=== PATIENT | female | born 1975 | race Caucasian/White ===

== ENCOUNTER 2020-05-18 13:18 | Emergency (ER) | payer OTHER, MEDICAID, SELFPAY ==
[2020-05-18 13:28] VITALS: BP 130/85; PULSE 95; RESP 20; TEMP 37; O2SAT 100
--- NOTE | 2020-05-18 13:32 | ED.SKABFB ---
HPI - Skin/Abscess/Foreign Bdy General Chief complaint: Skin/Abscess/Foreign Body Stated complaint: rash Time Seen by Provider: 05/18/20 13:32 Source: patient History of Present Illness HPI narrative: PATIENT PRESENTS WITH AN ITCHY RASH THAT HAS BEEN PRESENT FOR THE PAST 2 WEEKS. PATIENT HAS ITCHING TO PALMS OF HAND, NO RASH TO HANDS, NO DRY AREA. PATIENT HAS ITCHY AREAS TO ARMS. NO REDNESS. PATIENT HAS BEEN TAKING BENADRYL AND APPLYING HYDROCORTISONE CREAM TO AREA WITH NO IMPROVEMENT MD complaint: rash Related Data Home Medications Medication Instructions Recorded Confirmed phentermine 15 mg DAILY 05/18/20 05/18/20 Allergies Allergy/AdvReac Type Severity Reaction Status Date / Time No Known Allergies Allergy Verified 05/18/20 13:21 Review of Systems Review of Systems: Narrative: CONSTITUTIONAL: Denies fever, chills, or sweats. EYES: Denies visual changes, redness, or discharge. ENT: Denies rhinorrhea, congestion, sore throat, or otalgia. CARDIOVASCULAR: Denies chest pain, palpitations, or edema. RESPIRATORY: Denies cough or dyspnea. GASTROINTESTINAL: Denies abdominal pain, nausea, vomiting, or diarrhea. GENITOURINARY: Denies dysuria or hematuria. SKIN: Rash to arms itching to palms of hands MUSCULOSKELETAL: Denies back pain, joint pain, or myalgia. NEUROLOGIC: Denies headache, numbness, or weakness. PSYCHIATRIC: Denies anxiety or depression. PMFSH Social History Social History Gender identity (if verbalized by the patient): Female Comments At time of signature, agree with nursing past medical, surgical, social and family history. There is no relevant family history pertinent to the presenting complaint Exam Narrative: Exam Narrative: GENERAL: Well-appearing, well-nourished, and in no acute distress. HEAD: Normocephalic, atraumatic. EYES: PERRLA and EOMI. ENT: Nares clear, no rhinorrhea or epistaxis. Mucous membranes moist. NECK: Supple. CHEST: Clear to auscultation. No respiratory distress. HEART: Regular rate and rhythm. No murmur heard. Normal peripheral pulses. ABDOMEN: Soft, nontender, nondistended, normal active bowel sounds. EXTREMITIES: Normal range of motion. No edema. SKIN: NON SPECIFIC GENERALIZED RASH. NO FLUID FILLED LESIONS, NO VESICLES, NO HIVES OR URTICARIA, NO BURROWS OR RASH IN WEB SPACES TO INDICATE SCABIES, NO CONCERN FOR CELLULITIS OR ABSCESS FORMATION. NO PURPURA OR PETECHIA. DOES NOT INVOLVE THE SOLES OF FEET OR PALMS OF HANDS OR THE MUCOSAL MEMBRANES. NO SLOUGHING OR SWELLING OF TONGUE OR LIPS. Papular areas to arms, some areas with central clearing to both legs no concern for cellulitis patient complains of itching to palms but no visible rash no scaling to palms NEURO: No focal deficits. Alert and oriented x3. [place] Coma Scale Eye Opening: Spontaneous 4 [place] Coma Scale Motor: Obeys Commands 6 [place] Coma Scale Verbal: Oriented 5 [place] Coma Scale Total 15 Course Vital Signs Vital signs: Vital Signs Temperature 37.0 C 05/18/20 13:28 Pulse Rate 95 05/18/20 13:28 Respiratory Rate 05/18/20 13:28 Blood Pressure 130/85 05/18/20 13:28 Pulse Oximetry 100 05/18/20 13:28 Temperature 37.0 C 05/18/20 13:28 Pulse Rate 95 05/18/20 13:28 Respiratory Rate 05/18/20 13:28 Blood Pressure 130/85 05/18/20 13:28 Pulse Oximetry 100 05/18/20 13:28 At time of signature, agree with nursing past medical, surgical, social and family history. There is no relevant family history pertinent to the presenting complaint MDM - Skin/Abscess/Foreign Bdy Differential Diagnosis Differential diagnosis: Likely abscess of skin or subcutaneous tissue, viral exanthem, dermatophytosis, urticaria, herpes zoster, allergic reaction to drug, cellulitis, eczema, insect bites, impetigo and contact dermatitis Critical Care Time Critical Care Time Critical Care Time: No Discharge Plan Discharge Clinical Impression: Contact dermatitis Patient Disposition:
== END 2020-05-18 13:36 | disposition home or self-care (01) ==
PROVIDERS: Emergency Provider Nurse Practitioner Family; PCP Family Medicine
DX: L25.9 Unspecified contact dermatitis, unspecified cause (principal)
CPT/HCPCS: 99213; G0463

== ENCOUNTER 2020-08-25 10:09 | Emergency (ER) | payer OTHER, MEDICAID, SELFPAY ==
--- NOTE | ~2020-08-25 | CT_ITS ---
EXAMINATION: CT abdomen pelvis wo con DATE: 08/25/2020 12:14 INDICATION: Left flank pain. TECHNIQUE: Computed tomography (CT) of the abdomen and pelvis was performed without intravenous contr ast. Automated exposure control and iterative reconstruction technique were employed. The dose-length product was 454.91 mGy-cm. COMPARISON: None. FINDINGS: The visualized portions of the lung bases demonstrate patchy groundglass opacities in the l ower lobes. No pleural effusion. The heart size is normal. No pericardial effusion. The liver, gallbl adder, spleen, pancreas, adrenal glands, and kidneys are normal. There are no dilated loops of bowel. The appendix is not visualized. There are no pathologically enlarged lymph nodes. There is no free i ntraperitoneal fluid. There is mild thoracolumbar spondylosis. IMPRESSION: 1. No urolithiasis. 2. Patchy groundglass opacities in the lower lobes, consistent with atypical pneumonia such as COVID- 19 pneumonia. Reviewed, dictated and finalized at location A. ONER HAND IMPRESSION: 1. No urolithiasis. 2. Patchy groundglass opacities in the lower lobes, consistent with atypical pn eumonia such as COVID-19 pneumonia.
[2020-08-25 10:37] VITALS: BP 109/89; PULSE 95; RESP 18; TEMP 36.8; O2SAT 97
[2020-08-25] MEDS: SODIUM CHLORIDE 0.9% IV 1,000 ML 999 ML IV CONT (11:04)
[2020-08-25 11:14] LABS: Basophils Percent Auto 0.3 % (0.2-1.2); Hematocrit 42.3 % (37.0-47.0); Immature Granulocyte Absolute 0.02 K/mm3 (0.00-0.031); Immature Granulocyte Percent A 0.3 % (0-0.5); Lymphocytes Percent Auto 20.5 % (18.3-44.2); Mean Corpuscular HGB Conc 33.1 g/dl (32-36); Mean Corpuscular Hemoglobin 29.1 pg (26-34); Mean Corpuscular Volume 87.9 fl (80-100); Monocytes Absolute Auto 0.4 K/mm3 (0.1-0.6); Neutrophils Absolute Auto 4.3 K/mm3 (1.3-6.7); Neutrophils Percent Auto 72.9 % (45.5-73.1); Platelet Count Result 233 k/mm3 (150-375); Red Blood Count 4.81 M/mm3 (4.2-5.4); Red Cell Distribution Width 13.5 % (11.5-14.5); White Blood Count 5.9 K/mm3 (4.5-10.0)
[2020-08-25 11:24] LABS: Add Urine Microscopic? YES; Appearance Urine Cloudy (Clear); Bacteria Urine Trace /hpf; Bilirubin Urine Negative (Negative); Blood Urine Negative (Negative); Color Urine Yellow (Yellow); Glucose Urine UA Negative (Negative); Ketones Urine Negative (Negative); Leukocyte Esterase Ur Negative LEU/UL (Negative); Mucus Urine Moderate /lpf; Nitrate Urine Negative (Negative); Protein Urine 2+ mg/dL (Negative); Specific Grav Ur 1.028 (1.001-1.035); Squamous Epithelial Cell Urine Many /hpf (Few); Urobilinogen Urine Negative mg/dL (<2.0)
[2020-08-25 11:28] LABS: Anion Gap 11 mmol/L (8-16); Blood Urea Nitrogen 9 mg/dL (7-17); Calcium 8.5 mg/dL (8.4-10.2); Carbon Dioxide 22 mmol/L (22-30); Chloride 102 mmol/L (98-107); Estimated CRCL calculation 101 ml/min; Estimated Glomerular Filt Rate > 60; Glucose 126 mg/dL (65-105); Potassium 3.9 mmol/L (3.4-5.0); Sodium 135 mmol/L (137-145)
[2020-08-25 12:35] VITALS: BP 113/76; PULSE 76; RESP 18; O2SAT 99
--- NOTE | 2020-08-25 12:52 | ED.BACK ---
HPI - Back Pain/Injury General Chief Complaint: Back Pain/Injury Stated Complaint: L FLANK PAIN Time Seen by Provider: 08/25/20 10:16 History of Present Illness HPI Narrative: Patient is a 45-year-old female who presents ER with left-sided flank pain. Reports its been her back over the last week and she thinks has moved around to the side. Seems similar to when she has had a kidney stone the past. She has not been having nausea or vomiting or shortness of breath. Pain is worse with sitting down. Has not found any pain medication helps. Denies fevers or chills or sweats or productive cough. No other concerns at this time. She denies any dysuria or hematuria or urinary frequency. Related Data Home Medications Medication Instructions Recorded Confirmed phentermine 15 mg DAILY 05/18/20 05/18/20 Allergies Allergy/AdvReac Type Severity Reaction Status Date / Time No Known Allergies Allergy Verified 08/25/20 10:52 Review of Systems Review of Systems: All systems reviewed & are unremarkable except as noted in HPI and below Constitutional: Constitutional: Denies chills, Denies fever(s) and Denies weakness ENT: Denies nasal congestion and Denies sore throat Cardiovascular: Cardiovascular: Denies chest pain and Denies radiating jaw, neck or arm pain Respiratory: Respiratory: Denies cough, Denies dyspnea and Denies wheezing Gastrointestinal: Gastrointestinal: Denies abdominal pain, Denies nausea and Denies vomiting Genitourinary: Genitourinary: Denies hematuria, Denies dysuria and Reports flank pain PMFSH Past Medical History Medical History (Updated 08/25/20 @ 12:56 by Ezio Muñoz MD) Ectopic Surgical History Surgical History (Updated 08/25/20 @ 12:53 by Ezio Muñoz MD) History of salpingectomy Social History Social History Gender identity (if verbalized by the patient): Female Exam Narrative: Exam Narrative: GENERAL: Well-appearing, well-nourished, and in no acute distress. HEAD: Normocephalic, atraumatic. CHEST: Clear to auscultation. No respiratory distress. HEART: Regular rate and rhythm. Normal peripheral pulses. ABDOMEN: Soft, nontender, nondistended, no CVA tenderness. Back: No midline tenderness or paraspinal muscular tenderness. EXTREMITIES: Normal range of motion. No edema. SKIN: Warm, dry, no rash. NEURO: Alert and oriented x3. PSYCH: Normal mood and affect. Course Course Emergency Course: Patient informed of results. Will swab for Covid. Because is not confirmed Covid we will start patient on some azithromycin for pneumonia. Patient has been instructed to self isolate at home. Vital Signs Vital signs: Vital Signs Temperature 98.2 F 08/25/20 10:37 Pulse Rate 95 08/25/20 10:37 Respiratory Rate 18 08/25/20 10:37 Blood Pressure 109/89 08/25/20 10:37 Pulse Oximetry 97 08/25/20 10:37 Temperature 98.2 F 08/25/20 10:37 Pulse Rate 76 08/25/20 12:35 Respiratory Rate 18 08/25/20 12:35 Blood Pressure 113/76 08/25/20 12:35 Pulse Oximetry 99 08/25/20 12:35 MDM - Back Pain/Injury Lab Data Result diagrams: 08/25/20 11:06 08/25/20 11:06 Labs: Lab Results 08/25/20 08/25/20 08/25/20 Range/Units 11:06 11:06 11:06 WBC 5.9 (4.5-10.0) K/mm3 RBC 4.81 (4.2-5.4) M/mm3 Hgb 14.0 (12.0-15.0) g/dL Hct 42.3 (37.0-47.0) % MCV 87.9 (80-100) fl MCH 29.1 (26-34) pg MCHC 33.1 (32-36) g/dl RDW 13.5 (11.5-14.5) % Plt Count 233 (150-375) k/mm3 MPV 10.0 (7.4-10.4) fl Immature Gran % (Auto) 0.3 (0-0.5) % Neut % (Auto) 72.9 (45.5-73.1) % Lymph % (Auto) 20.5 (18.3-44.2) % [place] % (Auto) 6.0 (2.6-8.5) % Eos % (Auto) 0.0 (0-4.4) % Baso % (Auto) 0.3 (0.2-1.2) % Lymph # (Auto) 1.20 (0.9-3.2) K/mm3 [place] # (Auto) 0.4 (0.1-0.6) K/mm3 Eos # (Auto) 0.0 (0-0.3) K/mm3 Baso # (Auto) 0.0 (0.0-0.1) K/mm3 Abs Immat Gran
[2020-08-25 13:05] VITALS: BP 121/81; PULSE 78; RESP 18; O2SAT 99
[2020-08-25 22:00] LABS: SARS-CoV-2 RNA PCR Negative
== END 2020-08-25 13:06 | disposition home or self-care (01) ==
PROVIDERS: Emergency Provider Emergency Medicine; PCP Family Medicine
DX: J18.9 Pneumonia, unspecified organism (principal); Z20.828 Contact with and (suspected) exposure to other viral communicable diseases; Z87.442 Personal history of urinary calculi
CPT/HCPCS: 36415; 74176; 80048; 81001; 81025; 85025; 87086; 87088; 87635; 96360; 99284; C9803; J7030; U0003

== ENCOUNTER 2021-11-24 12:35 | Emergency (ER) | payer OTHER, MEDICAID, SELFPAY ==
--- NOTE | 2021-11-24 12:42 | ED.URI ---
HPI - URI/Sore Throat General Chief Complaint: Upper Respiratory Infection Stated Complaint: Sore Throat,Chills Time Seen by Provider: 11/24/21 12:58 Source: patient and RN notes reviewed Mode of arrival: ambulatory Limitations: no limitations History of Present Illness HPI Narrative: 46-year-old female presents with concern for sore throat and chills. Reports symptoms started last night. She reports last night she had some shivering, sweats, chills. She denies rhinorrhea, nasal congestion, fever, cough, shortness of breath. Reports history of strep throat. MD elicited complaint: sore throat Related Data Home Medications Medication Instructions Recorded Confirmed phentermine 15 mg DAILY 05/18/20 11/24/21 Allergies Allergy/AdvReac Type Severity Reaction Status Date / Time No Known Allergies Allergy Verified 11/24/21 13:01 Review of Systems Review of Systems: CONSTITUTIONAL: Reports malaise, chills, sweats EYES: Denies visual changes, redness, or discharge. ENT: Denies rhinorrhea, congestion, sinus pain, otalgia. Reports sore throat. CARDIOVASCULAR: Denies chest pain, palpitations, or edema. RESPIRATORY: Denies cough. Denies dyspnea. GASTROINTESTINAL: Denies abdominal pain, nausea, vomiting, diarrhea SKIN: Denies rash or itching. MUSCULOSKELETAL: Denies myalgia. NEUROLOGIC: Denies headache. All systems reviewed & are unremarkable except as noted in HPI and below PMFSH Past Medical History Medical History (Updated 11/24/21 @ 13:06 by Albania Alford NP) Ectopic Surgical History Surgical History (Updated 08/25/20 @ 12:53 by Ezio Muñoz MD) History of salpingectomy Social History Social History Gender identity (if verbalized by the patient): Female Comments At time of signature, agree with nursing past medical, surgical, social and family history. There is no relevant family history pertinent to the presenting complaint Exam Narrative: GENERAL: Well-appearing, well-nourished, and in no acute distress. HEAD: Normocephalic EYES: PERRLA, conjunctivae clear ENT: Nares clear. Mucous membranes moist. TM pearly brown with sharp light reflex bilaterally; no tragal tenderness. Oropharynx erythematous without lesions. Tonsils enlarged, 3+, and without exudate, no drooling, no hoarseness, no trismus, uvula midline. NECK: Supple. No lymphadenopathy CHEST: Clear to auscultation, breath sounds equal. No wheezing, rhonchi, rales, or stridor. No respiratory distress, speaks in full sentences. HEART: Regular rate and rhythm. No murmur heard. SKIN: Warm, dry, no rash. NEURO: Alert and oriented x3. PSYCH: Normal mood and affect Course Course Emergency Course: Patient is aware of diagnosis, understands and agrees to treatment plan. Anticipatory guidance given. Patient agrees to follow-up as directed and is aware of reasons to seek care at the emergency department. Portions of this record may have been created with voice recognition software Level of Care: Express Care Visit Vital Signs Vital signs: Reviewed. MDM - URI/Sore Throat MDM Narrative Medical decision making narrative: Differential diagnosis considered: Delaney virus, strep pharyngitis, allergic rhinitis, upper respiratory tract infection, sinusitis, rhinosinusitis, nasopharyngitis. viral pharyngitis, otitis media, otitis externa, pneumonia, bronchitis, viral cough syndrome, viral syndrome, and influenza. Exam findings show no acute concerns or changes; patient is non-toxic appearing and is in no distress. Patient is appropriate for outpatient treatment and follow-up. Lab Data Attestation: I reviewed the patient's lab results. Critical Care Time Critical Care Time Critical Care Time: No Discharge Plan Discharge Clinical Impression: Acute streptococcal pharyngitis Patient Disposition: Home, Self-Care Condition: Stable Instructions: Antibiotic Form, Strep Throat (ED) Additional Instructions: -Take the medication as pr
[2021-11-24 12:48] VITALS: BP 131/83; PULSE 107; RESP 18; TEMP 36.6; O2SAT 100
== END 2021-11-24 13:11 | disposition home or self-care (01) ==
PROVIDERS: Emergency Provider Nurse Practitioner; PCP Family Medicine
DX: J02.0 Streptococcal pharyngitis (principal)
CPT/HCPCS: 87880; 99213; G0463

== ENCOUNTER 2021-11-25 16:01 | Outpatient (CLI) | payer OTHER, MEDICAID, SELFPAY ==
--- NOTE | ~2021-11-25 | MM_ITS ---
EXAMINATION: MM screening dawn BI w mariaelena HISTORY: Screening mammogram TECHNIQUE: Craniocaudal and mediolateral oblique 3-D tomosynthesis images were obtained and synthetic 2-D images were generated. CAD analysis was submitted and interpreted. COMPARISON: 07/17/2019 diagnostic right mammogram 07/03/2019, 06/2018 bilateral screening mammogram examinations BREAST PARENCHYMAL COMPOSITION: There are scattered areas of fibroglandular density. FINDINGS: There is no evidence of suspicious mass, calcification, or architectural distortion to sugg est malignancy in either breast. There has been no suspicious interval change. IMPRESSION: 1. No mammographic evidence of malignancy. 2. Recommend routine screening mammography in one year. BI-RADS Category 1: Negative Reviewed, dictated and finalized at location A.
== END 2021-11-25 16:02 | disposition home or self-care (01) ==
LOC: ANHIMG 16:02
PROVIDERS: PCP Family Medicine; Visit Provider Family Medicine
DX: Z12.31 Encounter for screening mammogram for malignant neoplasm of breast (principal)
CPT/HCPCS: 77063; 77067

== ENCOUNTER 2022-03-20 12:54 | Emergency (ER) | payer OTHER, MEDICAID, SELFPAY ==
[2022-03-20 12:59] VITALS: BP 147/93; PULSE 82; RESP 18; TEMP 37.1; O2SAT 100
--- NOTE | 2022-03-20 13:09 | ED.GENADULT ---
HPI - General Adult General Chief complaint: Upper Respiratory Infection Stated complaint: Congestion,Cough History of Present Illness HPI narrative: Patient is a 46-year-old female who presents to the [facility] via POV for evaluation of upper respiratory symptoms that began 3 days ago. Additionally, she reports productive cough, nasal congestion, and sore throat. She reports her sputum production is moderate in the mornings and mild throughout the day. Sputum production is yellow in color. Ibuprofen alleviates throat pain. Nothing worsens symptoms. Patient states she is tested for COVID daily at work. She has had 3 negative COVID tests since symptom onset. She has also been exposed to COVID and URIs from coworkers. Patient is not vaccinated against COVID. Related Data Allergies Allergy/AdvReac Type Severity Reaction Status Date / Time No Known Allergies Allergy Verified 03/20/22 12:58 Review of Systems Review of Systems: Denies history of COPD, bronchitis, asthma, and pneumonia. Denies current/past tobacco use. Pertinent negatives: fever, sweats, chills, change in appetite, fatigue, skin color changes, headache, nasal discharge, dizziness, lymphadenopathy, drooling, voice changes, sinus problems, ear pain/drainage, chest pain, heart murmurs, heart palpitations, shortness of breath, wheezing, cyanosis, hemoptysis, orthopnea, pleuritic pain, nausea, vomiting, diarrhea, and myalgias. PMFSH Past Medical History Medical History Ectopic Surgical History Surgical History History of salpingectomy Social History Social History Gender identity (if verbalized by the patient): Female Exam Narrative: GENERAL: Well-appearing, well-nourished, and in no acute distress. HEAD: Normocephalic, atraumatic. No sinus tenderness or facial swelling appreciated. EYES: PERRLA and EOMI. No evidence of erythema, swelling, or drainage. ENT: Bilateral external ears and ear canals normal. Bilateral TMs are normal.No TM perforation. Nares clear, no rhinorrhea or epistaxis. Bilateral turbinates are moderately erythematous and edematous. Mucous membranes moist and pink. Uvula is midline without erythema and swelling. Bilateral tonsils are mildy erythematous otherwise normal. Breath odor and voice normal. NECK: Supple. No Lymphadenopathy or nuchal rigidity appreciated. CHEST: Bilateral lung fofana are clear to auscultation. No respiratory distress. No evidence of cough or pleuritic cp upon examination. HEART: Regular rate and rhythm. No murmur, gallop, or rub heard. EXTREMITIES: Normal range of motion. No edema. SKIN: Warm, dry, no rash. NEURO: No focal deficits. Alert and oriented x3. . Course Course Level of Care: Express Care Visit Vital Signs Vital signs: Due to an elevated blood pressure, I had a detailed discussion with the patient and/or guardian regarding the need for follow-up with their primary care provider within the next 3-4 days. Patient verbalized understanding and agreed. Medical Decision Making Differential Diagnosis Differential Diagnosis: Allergic rhinitis, ABRS, acute viral sinusitis, strep pharyngitis, nasopharyngitis, bronchitis, pneumonia, AOM, otitis externa, viral URI, influenza, covid-19 Lab Data Lab results narrative: rapid strep negative Critical Care Time Critical Care Time Critical Care Time: No Discharge Plan Discharge Clinical Impression: Upper respiratory infection Qualifiers: URI type: unspecified URI Qualified Code(s): J06.9 - Acute upper respiratory infection, unspecified Patient Disposition: Home, Self-Care Condition: Stable Instructions: Antibiotic Form, Upper Respiratory Infection (ED) Additional Instructions: --See discharge instructions for detailed information. --You tested negat
== END 2022-03-20 13:24 | disposition home or self-care (01) ==
PROVIDERS: Emergency Provider Nurse Practitioner Family; PCP Family Medicine
DX: J06.9 Acute upper respiratory infection, unspecified (principal); Z86.16 Personal history of COVID-19
CPT/HCPCS: 87081; 87880; 99213; G0463

== ENCOUNTER 2022-08-23 14:40 | Emergency (ER) | payer OTHER, MEDICAID, SELFPAY ==
--- NOTE | 2022-08-23 14:49 | ED_ITS ---
HPI - URI/Sore Throat General Chief Complaint: Upper Respiratory Infection Stated Complaint: cough,congestion Time Seen by Provider: 08/23/22 14:59 Source: patient and RN notes reviewed Mode of arrival: ambulatory Limitations: no limitations History of Present Illness HPI Narrative: 47-year-old female presented for complaint of cough for 2 weeks. She endorses sinus congestion started today. She denies body aches, shortness of breath, wheezing, sore throat, fever or chills. She has not taking anything for symptoms. 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 MD elicited complaint: cough Related Data Allergies Allergy/AdvReac Type Severity Reaction Status Date / Time No Known Allergies Allergy Verified 08/23/22 14:48 Review of Systems Review of Systems: ROS per HPI [facility] Past Medical History Medical History Ectopic Surgical History Surgical History History of salpingectomy Social History Social History Gender identity (if verbalized by the patient): Female Exam Narrative: GENERAL: well-appearing EYES: PERRLA, conjunctivae clear ENT: Mucous membranes moist. TMs pearly brown with dull light reflex bilaterally; no tragal tenderness. CHEST: Clear to auscultation, breath sounds equal. HEART: Regular rate and rhythm. No murmur heard. SKIN: Warm, dry, no rash. NEURO: Alert and oriented x3. PSYCH: Normal mood and affect Course Course Emergency Course: Patient is aware of diagnosis, understands and agrees to treatment plan. Anticipatory guidance given. Patient agrees to follow-up as directed and is aware of reasons to seek care at the emergency department. Portions of this record may have been created with voice recognition software Level of Care: Express Care Visit Vital Signs Vital signs: reviewed MDM - URI/Sore Throat MDM Narrative Medical decision making narrative: Advised supportive measures and signs/symptoms to go to the ER. Pt is appropriate for outpt treatment and f/u. Differential Diagnosis Differential diagnosis: Likely upper respiratory infection, sinusitis and viral infection Discharge Plan Discharge Clinical Impression: Cough Patient Disposition: Home, Self-Care Condition: Stable Instructions: Acute Cough (ED) Additional Instructions: Recommend Flonase spray and Zyrtec (or Claritin/Eliza) over the counter Cough syrup may cause drowsiness; avoid driving or take it at night time. Tylenol every 8 hours as needed for pain Symptomatic treatment includes: rest, fluids, and increase humidity of the air at home. Follow up with your primary care provider in 1 week. Go to the ER for worsening symptoms or concerns. Prescriptions: New benzonatate 200 mg capsule 200 mg PO TID PRN (Reason: cough) Qty: 20 0RF prednisone 20 mg tablet 40 mg PO DAILY 4 Days Qty: 8 0RF Follow-up/Referrals: Robin,MD Efe [Primary Care Provider] - Time of Disposition: 15:12
[2022-08-23 14:53] VITALS: BP 138/85; PULSE 92; RESP 18; TEMP 36.8; O2SAT 100
== END 2022-08-23 16:49 | disposition home or self-care (01) ==
PROVIDERS: Emergency Provider Nurse Practitioner Family; PCP Family Medicine
DX: R05.9 Cough, unspecified (principal)
CPT/HCPCS: 99213; G0463

== ENCOUNTER 2022-11-24 14:56 | Emergency (ER) | payer BC, MEDICAID, SELFPAY ==
--- NOTE | ~2022-11-24 | XR_ITS ---
EXAMINATION: XR chest 2V Exam Date/Time: 11/24/2022 15:15 CDT HISTORY: cough x 2 weeks Comparison: None available. RESULT: Lines, tubes, and devices: None. Lungs and pleura: Clear. Cardiomediastinal silhouette: Normal. Other: No acute osseous or upper abdominal finding. IMPRESSION: No acute cardiopulmonary process. Reviewed, dictated and finalized at location K.
[2022-11-24 15:07] VITALS: BP 138/91; PULSE 89; RESP 16; TEMP 36.8; O2SAT 100
--- NOTE | 2022-11-24 15:14 | ED.URI ---
HPI - URI/Sore Throat General Chief Complaint: Upper Respiratory Infection Stated Complaint: cough,nasal drainage Time Seen by Provider: 11/24/22 15:14 Source: patient Mode of arrival: ambulatory Limitations: no limitations History of Present Illness HPI Narrative: 47-year-old female presents with complaint of cough for 2 weeks. Reports today at work she became winded. 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 Patient states that she does not really feel that bad but environmental field office manager made her come . Afebrile. No history of asthma, bronchitis. Smoked and high school but not since then. All systems reviewed and negative except as noted above. Related Data Allergies Allergy/AdvReac Type Severity Reaction Status Date / Time No Known Allergies Allergy Verified 11/24/22 15:10 Review of Systems Review of Systems: CONSTITUTIONAL: Denies fever, chills, or sweats. EYES: Denies visual changes, redness, or discharge. ENT: Denies rhinorrhea, congestion, sore throat, or otalgia. CARDIOVASCULAR: Denies chest pain, palpitations, or edema. RESPIRATORY: Reports cough and dyspnea on exertion. GASTROINTESTINAL: Denies abdominal pain, nausea, vomiting, or diarrhea. GENITOURINARY: Denies dysuria or hematuria. SKIN: Denies rash or itching. MUSCULOSKELETAL: Denies back pain, joint pain, or myalgia. NEUROLOGIC: Denies headache, numbness, or weakness. PSYCHIATRIC: Denies anxiety or depression. All other systems reviewed are negative, except as documented in HPI. PMFSH Past Medical History Medical History Ectopic Surgical History Surgical History History of salpingectomy Social History Social History Gender identity (if verbalized by the patient): Female Comments At time of signature, agree with nursing past medical, surgical, social and family history. There is no relevant family history pertinent to the presenting complaint. Exam Narrative: GENERAL: This is a well-nourished, well-developed patient, in no apparent distress. HEAD: normocephalic, atraumatic. EYES: PERRL. Sclera clear/white. Vision is grossly intact. EARS: External ears normal, auditory canals clear and without drainage, TMs normal without perforation. Hearing grossly intact. NOSE: External nose normal with no obvious nasal discharge, nares without redness, no rhinorrhea. THROAT: Mucous membranes moist, posterior pharynx clear. NECK: Neck supple, non-tender without lymphadenopathy, masses or thyromegaly. CARDIOVASCULAR: Regular rate and rhythm without murmurs, gallops, or rubs. RESPIRATORY: decreased lung sounds to lower lung fofana. Expiratory wheezing noted to left lower lobe. No rales, or rhonchi. SKIN: warm, Dry, intact with no suspicious lesions or rash, good texture and turgor. NEURO: awake, alert, and oriented to person, place and time. There were no obvious focal neurologic abnormalities. EXTREMITIES: No joint tenderness, effusion, or edema noted. Course Course Level of Care: Express Care Visit Vital Signs Vital signs: Vital Signs Temperature 36.8 C 11/24/22 15:07 Pulse Rate 89 11/24/22 15:07 Respiratory Rate 16 11/24/22 15:07 Blood Pressure 138/91 H 11/24/22 15:07 Pulse Oximetry 100 11/24/22 15:07 Oxygen Delivery Room Air 11/24/22 15:07 Temperature 36.8 C 11/24/22 15:07 Pulse Rate 89 11/24/22 15:07 Respiratory Rate 16 11/24/22 15:07 Blood Pressure 138/91 H 11/24/22 15:07 Pulse Oximetry 100 11/24/22 15:07 Oxygen Delivery Room Air 11/24/22 15:07 reviewed MDM - URI/Sore Throat MDM Narrative Medical decision making narrative: Patient is aware of diagnosis, understands and agrees to treatment plan. Anticipatory guidance given. Patient agr
== END 2022-11-24 15:43 | disposition home or self-care (01) ==
PROVIDERS: Emergency Provider Nurse Practitioner Family; PCP Family Medicine
DX: J20.9 Acute bronchitis, unspecified (principal)
CPT/HCPCS: 71046; 99213; G0463

== ENCOUNTER 2024-09-08 12:34 | Emergency (ER) | payer BC, MEDICAID, SELFPAY ==
--- NOTE | 2024-09-08 13:03 | ED_ITS ---
HPI - Female Genitourinary General Chief complaint: Urogenital-Female Stated complaint: possible UTI Time Seen by Provider: 09/08/24 12:53 Source: patient Mode of arrival: ambulatory Limitations: no limitations History of Present Illness HPI Narrative: Cindy is a 49-year-old female patient presenting to the clinic today with complaints of possible urinary tract infection. She reports she is having some left-sided abdominal discomfort that started on of this week. States prior to that she had a week's worth urinary symptoms with pressure sensation with urination, dysuria, and fever. She denies any nausea, vomiting, or diarrhea. No vaginal discharge or odor. Denies any chance of . Last menstrual period was August 23. Patient has been taking azo for her symptoms. Related Data Home Medications ?Medication ?Instructions ?Recorded ?Confirmed ?Last Taken ?Type tirzepatide (weight loss) 10 mg subcut 09/08/24 Unknown History mg/0.5 mL subcutaneous pen injector (Zepbound) Allergies Allergy/AdvReac Type Severity Reaction Status Date / Time No Known Allergies Allergy Verified 09/08/24 13:14 Review of Systems Review of Systems: Pertinent positives per HPI. Patient denies any fever, chills, rash, headache, visual changes, dizziness, cough, runny nose, sore throat, shortness of breath, chest pain, palpitations, nausea, vomiting, diarrhea, constipation PMFSH Past Medical History Medical History Ectopic Surgical History Surgical History History of salpingectomy Social History Social History Gender identity (if verbalized by the patient): Female Comments At the time of my signature, I reviewed and agree with the nursing past medical, surgical, social, and family history. There is no relevant family history pertinent to the patient complaint. Exam Narrative: General: Well-developed, well nourished, in no apparent distress. Head: Normocephalic, atraumatic. Cardio: Regular rate and rhythm, s1 and s2 normal, no murmur appreciated. Resp: Clear to auscultation bilaterally, no rhonchi, rales, wheezing or rubs. Abdomen: Soft, pliable, bowel sounds present in all quadrants, tender to palpation in the left lower abdomen, no organomegly, no CVAT tenderness. Course Course Emergency Course: Portions of this record may have been created with voice recognition software. Level of Care: Express Care Visit Vital Signs Vital signs: Vital signs reviewed MDM - Female Genitourinary MDM Narrative Medical decision making narrative: At the time of visit patient is resting comfortably on the exam table. Patient appears to be nontoxic. Labs: Urinalysis did skewed due to azo. We will send urine for culture Plan: I suspect patient likely has a bladder infection. Will place on Bactrim and send urine for culture. Supportive measures were discussed with the patient and they voiced understanding discharge instructions and agrees to treatment plan. Return precautions reviewed Differential Diagnosis Differential diagnosis: Likely urinary tract infection, cystitis and other (Pyelonephritis) Discharge Plan Discharge Clinical Impression: Urinary tract infection Qualifiers: Urinary tract infection type: acute cystitis Hematuria presence: with hematuria Qualified Code(s): N30.01 - Acute cystitis with hematuria Patient Disposition: Home, Self-Care Condition: Stable Instructions: Antibiotic Form, Urinary Tract Infection in Women (ED) Additional Instructions: Increase fluids and stay well hydrated Wipe front to back. May use wet wipes. Avoid tub baths If sexually active- pee before and after intercourse. Wear cotton panties Avoid tight clothing up against the genitals Follow up with your PCP in 1 week if symptoms persist. Go to the emergency room if symptoms worsen-developed fever not controlled by Tylenol Motrin, difficulty urinating, nausea, vomiting, or worsening of abdominal pain Patient Language: Serbian Prescriptions: New sulfamethoxazole-trimethoprim [Bactrim DS] 800-160 mg tablet 1 tablet PO Q12H 7 Days Qty: 14 0RF No Action (DME) Aerochamber Plus Z Stat Spacer See Rx Instructions .Route Qty: 1 0RF Rx Instructions: As directed Zepbound 10 mg/0.5 mL pen injector SUBCUT Follow-up/Referrals: CANDIS,PRABHU REID [Primary Care Provider] - Time of Disposition: 13:21 Quality NIHSS Nursing Documentation ED NIHSS nursing documentation: reviewed/agree
[2024-09-08 13:04] VITALS: BP 134/88; PULSE 116; RESP 18; TEMP 37.2; O2SAT 100
[2024-09-08 13:11] LABS: EDUAAPPEAR Cloudy; EDUABILI 1+ (Negative); EDUABLOOD 1+ (Negative); EDUACOLOR1 Yellow; EDUAGLUCOSE Negative (Negative); EDUAKETONE Trace (Negative); EDUALEUKO 1+ (Negative); EDUANITRATE Positive (Negative); EDUAPH 6.5; EDUAPROTEIN 2+ (Negative); EDUASPGRAVITY 1.015
--- OUTSIDE RECORDS SUMMARY | 2024-09-15 19:45 | XMS_ITS | Encounter Summary ---
Author Organization [facility] Address [address] [place] [address]. [place] [address] [place] [address] Care Team Providers Care Audio Video Technician Name Role Phone Carla Holt Primary Care Provider [phone] Reason for Visit * Reason Onset Date Comments Prior Authorization 01/24/2024 Phentermine 37.5mg.(Good Rx) Encounter Details Date Type Department Care Team (Late st Contact Info) Description 01/24/2024 Telephone [facility] Family & Internal Medicine [place] [address] [place] [address] Carla Holt FNP [facility] [place] [address] Prior Authorization (Phentermine 37.5mg.(Good Rx) ) Social History Tobacco Use Types Packs/Day Years Used Date Smoking Tobacco: Never Smokeless Tobacco: Never Alcohol Use Standard Drinks/Week Comments Yes 0 (1 standard drink = 0.6 oz pur e alcohol) x1 a month PHQ-2 Answer Date Recorded Patient Health Questionnaire-2 Score 0 01/05/2024 Comments No Sex and Gender Information Value Date Recorded Sex Assigned at Female 01/02/2024 9:13 AM CDT Legal Sex Female 6:03 PM CDT Gender Identity Female 01/02/2024 9:13 AM CDT Sexual Orientation Straight 01/02/2024 9: 13 AM CDT documented as of this encounter Progress Notes * Tiny Jones MA - 01/24/2024 7:32 AM CDT 01-24-24: Request for PA-Phentermine. Can get Phentermine 37.5mg #30 tablets for around $17.31 through [employer] using [facility]. MyChart msg sent. Adore,rma documented in this encounter Plan of Treatment Upcoming Encounters Date Type Department Care Team (Late st Contact Info) Description 09/24/2024 2:00 PM SENIOR MARKETING ASSOCIATE Office Visit [facility] Family & Internal Medicine - [address] [address] Carla Holt FNP [address] [place] [address] documented as of this encounter Visit Diagnoses Not on filedocumented in this encounter Additional Health Concerns Assessment Noted Time PHQ-9 Depression Total Score: 6 01/05/20 9:29 AM CDT documented as of this encounter Care Teams Audio Video Technician Relationship Specialty Start Date End Date Carla Holt FNP [address] [place] [id number] PCP - General Nurse Practitioner Family 01/05/24 documented as of this encounter
--- OUTSIDE RECORDS SUMMARY | 2024-09-15 19:45 | XMS_ITS | Encounter Summary ---
Author Organization [facility] Address [address] [place] [address]. [place] [address] [place] [address] Care Team Providers Care Pressfitter Name Role Phone Carla Holt Primary Care Provider [phone] Encounter Details Date Type Department Care Team (Latest Contact Info) Description 07/16/2024 Travel Social History Tobacco Use Types Packs/Day Years Used Date Smoking Tobacco: Never Passive Smoke Exposure: Never Smokeless Tobacco: Never Alcohol Use Standard [...] AM CDT documented as of this encounter Plan of Treatment Upcoming Encounters Date Type Department Care Team (Late st Contact Info) Description 09/24/2024 2:00 PM MILITARY LOGISTICS SPECIALIST Office Visit [facility] Family & Internal Medicine [address] [phone] Carla Holt FNP [address] [place] [address] documented as of this encounter Visit Diagnoses Not on filedocumented in this encounter Additional Health Concerns Assessment Noted Time PHQ-9 Depression Total Score: 6 01/05/20 24 9:29 AM CDT documented as of this encounter Care Teams Pressfitter Relationship Specialty Start Date End Date Carla Holt FNP [address] [place] [id number] PCP - General Nurse Practitioner Family 01/05/24 documented as of this encounter
--- OUTSIDE RECORDS SUMMARY | 2024-09-15 19:45 | XMS_ITS | Encounter Summary ---
Author Organization [facility] Address [address] [place] [address]. [place] [address] [place] [address] Care Team Providers Care Service Delivery Supervisor Name Role Phone Carla Holt Primary Care Provider [phone] Reason for Visit * Reason Onset Date Comments Prior Authorization 01/06/2024 Zepbound 2.5 mg/0.5mL Encounter Details Date Type Department Care Team (Late st Contact Info) Description 01/06/2024 Telephone [facility] Family & Internal Medicine [place] [phone] [place] [address] Carla Holt FNP [facility] [place] [address] Prior Authorization (Zepbound 2.5mg/0.5mL ) Social History Tobacco Use Types Packs/Day [...] Notes * Tiny Jones MA - 01/24/2024 9:21 AM CDT 01/24/24: Appeal approved for Zepbound 2.5mg annette,rma * Tiny Jones MA - 01/13/2024 2:27 PM CDT 01-13-24: Appeal letter sent and waiting on decision annettetrudia * Tiny Jones MA - 01/09/2024 7:57 AM CDT 01-09-24: PA denied for Zepbound 2.5mg /la,rma PA Rx #: [id number] * Tiny Jones MA - 01/06/2024 10:32 AM CDT 01-06-24: PA pending for Zepbound 2.5mg/0.5mg/la,rma Called patient for additional information regarding weight loss. Patient stated that she used 3 full months of Fen Phen- Patient stated this was discontinued because she was not showing any improvement. Also, tried Keto and Aktins diets for over 6 months each. Patient told will send out her PA and contact her once we receive a response. Patient v/u annetterma documented in this encounter Plan of Treatment Upcoming Encounters Date Type Department Care Team (Late st Contact Info) Description 09/24/2024 2:00 PM ORGANIZATIONAL PSYCHOLOGIST Office Visit [facility] Family & Internal Medicine - [place] [address] [place] [address] Carla Holt FNP [address] [place] [address] documented as of this encounter Visit Diagnoses Not on filedocumented in this encounter Additional Health Concerns Assessment Noted Time PHQ-9 Depression Total Score: 6 01/05/20 24 9:29 AM CDT documented as of this encounter Care Teams Service Delivery Supervisor Relationship Specialty Start Date End Date Carla Holt FNP [address] [place] [id number] PCP - General Nurse Practitioner Family 01/05/24 documented as of this encounter
--- OUTSIDE RECORDS SUMMARY | 2024-09-15 19:45 | XMS_ITS | Encounter Summary ---
Author Organization [facility] Address [address] [place] [address]. [place] [address] [place] [address] Care Team Providers Care Internal Communications Writer Name Role Phone Carla Holt Primary Care Provider [phone] Encounter Details Date Type Department Care Team (Latest Contact Info) Description 01/05/2024 - 01/05/2024 11:59 PM CDT Hospital Encounter [facility] [address] [place] [address] Carla Holt FNP [facility] [place] [address] Discharge Disposition: Home or Self Care (Routine Discharge) Social History Tobacco Use Types Packs/Day Years [...] AM CDT documented as of this encounter Medications at Time of Discharge tirzepatide (ZEPBOUND) 2.5 MG/0.5ML injectionIndicati ons:BMI 40.0-44.9, adult ([facility]) Inject 2.5 mg into the skin once a week. 2 mL 01/05/2024 02/13/2024 documented as of this encounter Plan of Treatment Upcoming Encounters Date Type Department Care Team (Late st Contact Info) Description 09/24/2024 2:00 PM PLATER APPRENTICE Office Visit [facility] Group Family & Internal Medicine - [address] [address] Carla Holt FNP [address] [place] [address] documented as of this encounter Visit Diagnoses Not on filedocumented in this encounter Additional Health Concerns Assessment Noted Time PHQ-9 Depression Total Score: 6 01/05/20 24 9:29 AM CDT documented as of this encounter Care Teams Internal Communications Writer Relationship Specialty Start Date End Date Carla Holt FNP [address] [place] [id number] PCP - General Nurse Practitioner Family 01/05/24 documented as of this encounter
--- OUTSIDE RECORDS SUMMARY | 2024-09-15 19:45 | XMS_ITS | Encounter Summary ---
Author Organization [facility] Address [address] [place] [address]. [place] [address] [place] [address] Care Team Providers Care Railroader Name Role Phone Unavailable Primary Care Provider Unavailabl e Encounter Details Date Type Department Care Team (Late st Contact Info) Description 09/05/2007 Abstract [facility] [address] [place], [place] [address] , Generic ConversionMD Social History Tobacco Use Types Packs/Day Years Used Date Smoking Tobacco: Never Assessed Comments Unknown Sex and Gender Information Value Date Recorded Sex Assigned at Female 01/02/2024 9:13 AM CDT Legal Sex Female 6:03 PM CDT Gender Identity Female 01/02/2024 9:13 AM CDT Sexual Orientation Straight 01/02/2024 9: 13 AM CDT documented as of this encounter Plan of Treatment Upcoming Encounters Date Type Department Care Team (Late st Contact Info) Description 09/24/2024 2:00 PM FISHING HAND Office Visit [facility] Group Family & Internal Medicine [address] [phone] Carla Holt FNP [address] [place], [place] [phone] documented as of this encounter Visit Diagnoses Not on filedocumented in this encounter
--- OUTSIDE RECORDS SUMMARY | 2024-09-15 19:45 | XMS_ITS | Encounter Summary ---
Author Organization [facility] Address [address] [place] [address]. [place] [address] [place] [address] Care Team Providers Care Tuck Pointer Name Role Phone Carla Holt Primary Care Provider [phone] Encounter Details Date Type Department Care Team (Late st Contact Info) Description 01/23/2024 Orders Only [facility] Family & Internal Medicine - [place] [address] [place] [address] Carla Holt FNP [address] [place], [place] [id number] Social History Tobacco Use Types Packs/Day Years [...] st Contact Info) Description 09/24/2024 2:00 PM ENGINE INSPECTOR Office Visit [facility] Family & Internal Medicine - [place] [address] [place] [address] Carla Holt FNP [address] [place] [address] documented as of this encounter Visit Diagnoses Diagnosis BMI 40.0-44.9, adult ([facility])- Primary Body Mass Index 40.0-44.9, adult documented in this encounter Additional Health Concerns Assessment Noted Time PHQ-9 Depression Total Score: 6 01/05/20 24 9:29 AM CDT documented as of this encounter Care Teams Tuck Pointer Relationship Specialty Start Date End Date Carla Holt FNP [address] [place] [address] PCP - General Nurse Practitioner Family 01/05/24 documented as of this encounter
--- OUTSIDE RECORDS SUMMARY | 2024-09-15 19:45 | XMS_ITS | Encounter Summary ---
Author Organization [facility] Address [address] [place] [address]. [place] [address] [place] [address] Care Team Providers Care Blow Molding Machine Tender Name Role Phone Carla Holt Primary Care Provider [phone] Encounter Details Date Type Department Care Team (Late st Contact Info) Description 01/10/2024 MyChart Message Enc [facility] Family & Internal Medicine - [place] [address] [place] [address] Carla Holt FNP [address] [place] [address] Ozempic Social History Tobacco Use Types Packs/Day Years [...] st Contact Info) Description 09/24/2024 2:00 PM SALES ACCOUNT ASSOCIATE Office Visit [facility] Family & Internal Medicine - [address] [place] [address] Carla Holt FNP [facility] [place] [address] documented as of this encounter Visit Diagnoses Not on filedocumented in this encounter Additional Health Concerns Assessment Noted Time PHQ-9 Depression Total Score: 6 01/05/20 24 9:29 AM CDT documented as of this encounter Care Teams Blow Molding Machine Tender Relationship Specialty Start Date End Date Carla Holt FNP [address] [place] [address] PCP - General Nurse Practitioner Family 01/05/24 documented as of this encounter
--- OUTSIDE RECORDS SUMMARY | 2024-09-15 19:45 | XMS_ITS | Encounter Summary ---
Author Organization [facility] Address [address] [place] [address]. [place] [address] [place] [address] Care Team Providers Care Medicine And Health Service Manager Name Role Phone Unavailable Primary Care Provider Unavailabl e Encounter Details Date Type Department Care Team (Late st Contact Info) Description 10/17/2007 Emergency [facility] [place] [address] , Azam Fry MD Social History Tobacco Use Types Packs/Day Years [...] st Contact Info) Description 09/24/2024 2:00 PM DIRECTOR OF PURCHASING Office Visit [facility] Medical Group Family & Internal Medicine - [place] [address] [place] [address] Carla Holt FNP [address] [place], [place] [id number] documented as of this encounter Visit Diagnoses Not on filedocumented in this encounter
--- OUTSIDE RECORDS SUMMARY | 2024-09-15 19:45 | XMS_ITS | Encounter Summary ---
Author Organization [facility] Address [address] [place] [address]. [place] [address] [place] [address] Care Team Providers Care Healthcare Or Medical Name Role Phone Carla Holt Primary Care Provider [phone] Encounter Details Date Type Department Care Team (Late Contact Info) Description 01/18/2024 MyChart Message Enc [facility] Medical Group Family & Internal Medicine [place] [phone] [place] [address] Carla Holt FNP [address] [place] [address] Phen phen Social History Tobacco Use Types Packs/Day Years [...] st Contact Info) Description 09/24/2024 2:00 PM LIABILITY CLAIMS ADJUSTER Office Visit [facility] Medical Group Family & Internal Medicine - [place] [id number] [place] [address] Carla Holt FNP [address] [place] [address] documented as of this encounter Visit Diagnoses Not on filedocumented in this encounter Additional Health Concerns Assessment Noted Time PHQ-9 Depression Total Score: 6 01/05/20 9:29 AM CDT documented as of this encounter Care Teams Healthcare Or Medical Relationship Specialty Start Date End Date Carla Holt FNP [address] [place] [address] PCP - General Nurse Practitioner Family 01/05/24 documented as of this encounter
--- OUTSIDE RECORDS SUMMARY | 2024-09-15 19:45 | XMS_ITS | Encounter Summary ---
Author Organization [facility] Address [address] [place] [address]. [place] [address] [place] [address] Care Team Providers Care Ranch Supervisor Name Role Phone Carla Holt Primary Care Provider [phone] Encounter Details Date Type Department Care Team (Late Contact Info) Description 01/10/2024 MyChart Message Enc [facility] Medical Group Family & Internal Medicine - [place] [phone] [place] [address] Carla Holt FNP [address] [place] [address] Insurance Social History Tobacco Use Types Packs/Day Years [...] Encounters Date Type Department Care Team (Late Contact Info) Description 09/24/2024 2:00 PM TOWER DRAGLINE OPERATOR Office Visit [facility] Medical Group Family & Internal Medicine - [address] [address] Calra Holt FNP [facility] [place] [address] documented as of this encounter Visit Diagnoses Not on filedocumented in this encounter Additional Health Concerns Assessment Noted Time PHQ-9 Depression Total Score: 6 01/05/20 24 9:29 AM CDT documented as of this encounter Care Teams Ranch Supervisor Relationship Specialty Start Date End Date Carla Hlot FNP [address] [place] [address] PCP - General Nurse Practitioner Family 01/05/24 documented as of this encounter
--- OUTSIDE RECORDS SUMMARY | 2024-09-15 19:45 | XMS_ITS | Encounter Summary ---
Author Organization [facility] Address [address] [place] [address]. [place] [address] [place] [address] Care Team Providers Care Wet Process Operator Name Role Phone Carla Holt Primary Care Provider [phone] Reason for Visit * Reason Comments Weight Problem Follow up on Zepboun d Encounter Details Date Type Department Care Team (Late st Contact Info) Description 02/13/2024 8:00 AM CDT Office Visit [facility] Medical Group Family & Internal Medicine - [address] [phone] Carla Holt FNP [address] [place] [phone] Weight Problem (Follow up on Zepbound) Social History Tobacco Use Types Packs/Day Years [...] AM CDT documented as of this encounter Last Filed Vital Signs Vital Sign Reading Time Taken Comments Blood Pressure 117/82 02/13/2024 8:08 AM CDT Pulse 63 02/13/2024 8:08 AM CDT Temperature 36.9 ??C (98.5 ??F) 02/13/2024 8:08 AM CD T Respiratory Rate 16 02/13/2024 8:08 AM CDT Oxygen Saturation 100% 02/13/2024 8:08 AM CDT Inhaled Oxygen Concentration - - Weight 122.9 kg (271 lb) 02/13/2024 8:08 AM CDT Height 170.2 cm (5' 7 ) 02/13/2024 8:08 AM CDT Body Mass Index 42.44 02/13/2024 8:08 AM CDT documented in this encounter Patient Instructions * Patient Instructions* INDU [place] - 02/13/2024 8:00 AM CDT Maintain a heart healthy diet and get plenty of daily physical activity Take medications as directed and prescribed Call for any questions or concerns Follow up in 1-3 months or sooner if needed or otherwise advised documented in this encounter Progress Notes * INDU [place] - 02/13/2024 8:00 AM CDTSummary: weight issues, vitamin d deficiency Office Progress Note Reason for Visit: Weight Problem (Follow up on Zepbound) History of Present Illness: Cindy presents to the office for a f/u of weight issues. BMI 42 She was started on zepbound almost one month ago and has lost 4 lbs, according to our scale and 9lbs, according to her records, since her last OV. She denies any side effects from this medication andwould like to continue this medication. Elevated LDL And we will recheck this in 6 months. She is working on her diet and has been increasing her daily physical activity. Vitamin d deficiency Taking a supplement daily and we will recheck this level in 6 months from the first check. ROS: Review of Systems Constitutional: Negative for chills, diaphoresis, fever, malaise/fatigue and weight loss. HENT: Negative for congestion, ear discharge, ear pain, hearing loss, nosebleeds, sinus pain, sore throat and tinnitus. Eyes: Negative for blurred vision, double vision, photophobia, pain, discharge and redness. Respiratory: Negative for cough, hemoptysis, sputum production, shortness of breath, wheezing and stridor. Cardiovascular: Negative for chest pain, palpitations, orthopnea, claudication, leg swelling and PND. Gastrointestinal: Negative for abdominal pain, blood in stool, constipation, diarrhea, heartburn, melena, nausea and vomiting. Genitourinary: Negative for dysuria, flank pain, frequency, hematuria and urgency. Musculoskeletal: Negative for back pain, falls, joint pain, myalgias and neck pain. Skin: Negative for itching and rash. Neurological: Negative for dizziness, tingling, tremors, sensory change, speech change, focal weakness, seizures, loss of consciousness, weakness and headaches. Endo/Heme/Allergies: Negative for environmental allergies and polydipsia. Does not bruise/bleed easily. Psychiatric/Behavioral: Negative for depression, hallucinations, memory loss, substance abuse and suicidal ideas. The patient is not nervous/anxious and does not have insomnia. Medications: No current outpatient medications on file prior to visit. No current facility-administered medications on file prior to visit. Allergies: Review of patient's allergies indicates: No Known Allergies Medical History: History reviewed. No pertinent past medical history. Surgical History: Past Surgical History: Procedure Laterality Date TREAT ECTOPIC PREG,NON REMVAL 09/04/2007 Social History: Social History Socioeconomic History Marital status: Tobacco Use Smoking status: Never Passive exposure: Never Smokeless tobacco: Never Vaping Use Vaping status: Never Used Substance and Sexual Activity Alcohol use: Yes Comment: x1 a month Drug use: Never Family History: Family History Problem Relation Name Age of Onset Depression Mother alive Diabetes Mother alive Anxiety Mother alive Hypertension Father alive Diabetes Father alive Anxiety Brother Hypertension Maternal Grandmother Diabetes Maternal Grandmother PE: Physical Exam Vitals and nursing note reviewed. Constitutional: General: She is not in acute distress. Appearance: Normal appearance. She is well-developed and well-groomed. She is not ill-appearing, toxic-appearing or diaphoretic. HENT: Head: Normocephalic and atraumatic. Jaw: There is normal jaw occlusion. Right Ear: Hearing and external ear normal. Left Ear: Hearing and external ear normal. Nose: Nose normal. Mouth/Throat: Mouth: Mucous membranes are moist. Pharynx: Oropharynx is clear. Eyes: General: Lids are normal. Vision grossly intact. Gaze aligned appropriately. Extraocular Movements: Extraocular movements intact. Conjunctiva/sclera: Conjunctivae normal. Neck: Thyroid: No thyroid mass, thyromegaly or thyroid tenderness. Vascular: Normal carotid pulses. No carotid bruit, hepatojugular reflux or JVD. Trachea: Trachea and phonation normal. Cardiovascular: Rate and Rhythm: Normal rate and regular rhythm. Heart sounds: Normal heart sounds. Pulmonary: Effort: Pulmonary effort is normal. No tachypnea, bradypnea, accessory muscle usage, prolonged expiration, respiratory distress or retractions. Breath sounds: Normal breath sounds and air entry. No stridor, decreased air movement or transmitted upper airway sounds. No decreased breath sounds, wheezing, rhonchi or rales. Abdominal: General: Abdomen is flat. Bowel sounds are normal. There is no distension or abdominal bruit. Thereare no signs of injury. Palpations: Abdomen is soft. Tenderness: There is no abdominal tenderness. Musculoskeletal: Cervical back: Full passive range of motion without pain, normal range of motion and neck supple. No edema, erythema, signs of trauma, rigidity, torticollis or crepitus. No pain with movement, spinous process tenderness or muscular tenderness. Normal range of motion. Right lower leg: No edema. Left lower leg: No edema. Lymphadenopathy: Cervical: No cervical adenopathy. Skin: General: Skin is warm and dry. Capillary Refill: Capillary refill takes less than 2 seconds. Findings: No rash. Neurological: Mental Status: She is alert and oriented to person, place, and time. Cranial Nerves: No cranial nerve deficit. Sensory: Sensation is intact. No sensory deficit. Motor: Motor function is intact. Coordination: Coordination is intact. Coordination normal. Gait: Gait is intact. Gait normal. Psychiatric: Attention and Perception: Attention and perception normal. Mood and Affect: Mood and affect normal. Speech: Speech normal. Behavior: Behavior normal. Behavior is cooperative. Thought Content: Thought content normal. Cognition and Memory: Cognition and memory normal. Judgment: Judgment normal. Filed Vitals: 02/13/24 0808 BP: 117/82 Pulse: 63 Resp: 16 Temp: 98.5 ??F (36.9 ??C) SpO2: 100% Weight: 122.9 kg (271 lb) Height: 1.702 m (5' 7 ) Diagnoses/Impression: 1. BMI 40.0-44.9, adult ([facility]) tirzepatide (ZEPBOUND) 5 MG/0.5ML injection 2. Vitamin D deficiency, unspecified 3. Elevated low density lipoprotein (LDL) cholesterol level Recommendations and Plan: 1. BMI 40.0-44.9, adult ([facility]) - tirzepatide (ZEPBOUND) 5 MG/0.5ML injection; Inject 5 mg into the skin once a week. Indications: Weight Loss Dispense: 2 mL; Refill: 1 Advised to continue current medications as prescribed and call for any issues or concerns of medicine She will maintain a heart healthy diet and get some daily physical activity as tolerated We discussed a 1 to 3-month follow-up, sooner if needed 2. Vitamin D deficiency, unspecified Advised to continue vitamin D supplement Routine follow-up advised 3. Elevated low density lipoprotein (LDL) cholesterol level Advised to continue working on a heart healthy diet low in saturated fats and to maintain daily physical activity We will recheck her level 6 months from the initial check Orders Placed This Encounter tirzepatide (ZEPBOUND) 5 MG/0.5ML injection Cannot display discharge medications since this is not an admission. I personally spent a total of 30 minutes on the day of the encounter. This includes skhe-[id number] and ejp-dkbt-oq-face time I provided on the day of the encounter & excludes time spent performing separately reportable services. PCP: INDU GUZMAN 02/13/2024 documented in this encounter Plan of Treatment Upcoming Encounters Date Type Department Care Team (Late st Contact Info) Description 09/24/2024 2:00 PM AUDIO VISUAL PROJECT MANAGER Office Visit [facility] Medical Group Family & Internal Medicine - [address] [address] Carla Holt FNP [address] [place] [address] documented as of this encounter Visit Diagnoses Diagnosis BMI 40.0-44.9, adult ([facility])- Primary Body Mass Index 40.0-44.9, adult Vitamin D deficiency, unspecified Elevated low density lipoprotein (LDL) cholesterol level documented in this encounter Additional Health Concerns Assessment Noted Time PHQ-9 Depression Total Score: 6 01/05/20 24 9:29 AM CDT documented as of this encounter Care Teams Wet Process Operator Relationship Specialty Start Date End Date Carla Holt FNP [address] [place] [address] PCP - General Nurse Practitioner Family 01/05/24 documented as of this encounter
--- OUTSIDE RECORDS SUMMARY | 2024-09-15 19:45 | XMS_ITS | Clinical Summary ---
Author Organization [facility] Address [address] [place] [address]. [place] [address] [place] [address] Care Team Providers Care Seismology Teacher Name Role Phone Carla Holt INDU Primary Care Provider [phone] Allergies No known active allergies Medications tirzepatide (ZEPBOUND) 10 MG/0.5ML injectionIndica tions:Weight Loss Inject 10 mg into the skin once a week. Indications : Weight Loss 2 mL 1 4 Active tirzepatide (ZEPBOUND) 10 MG/0.5ML injectionIndica tions:Weight Loss Inject 10 mg into the skin once a week. Indications : Weight Loss 2 mL 1 4 08/30/20 24 Discontinu ed(Reorder ) Active Problems Problem Noted Date Diagnosed Date Class 2 obesity due to exces s calories without serious comorbidity with body mass index (BMI) of 36.0 to 36.9 in adult 02/13/2024 Vitamin D deficiency, unspecified 02/13/2024 Family history of diabetes mellitus 02/13/2024 Elevated low density lipoprotein (LDL) cholester ol level 02/13/2024 Encounters Date Type Department Care Team Description 07/16/2024 8:00 AM DIRECTOR PATIENT FINANCIAL SERVICES Office Visit [facility] Medical Group Family & Internal Medicine [address] [address] Carla Holt FNP Follow Up (Weight loss doing well ); Vitamin D Deficiency 07/16/2024 Travel from Last 3 Months Immunizations Name Administration Dates Next Due Hepatitis B Vaccine Adult 07/29/2003 Influenza Adult (Generic) 06/05/2020 Td (TDVAX) 07/29/2003 Tdap (Generic) 01/10/2020 Family History Medical History Relation Comments Anxiety Brother Diabetes Father Hypertension Father Diabetes Maternal Grandmother Hypertension Maternal Grandmother Anxiety Mother Depression Mother Diabetes Mother Relation Status Comments Brother Father Maternal Grandmother Mother Social History Tobacco Use Types Packs/Day Years [...] Orientation Straight 01/02/2024 9: 13 AM CDT Last Filed Vital Signs Vital Sign Reading Time Taken Comments Blood Pressure 110/78 07/16/2024 8:07 AM DIRECTOR PATIENT FINANCIAL SERVICES Pulse 85 07/16/2024 8:07 AM DIRECTOR PATIENT FINANCIAL SERVICES Temperature 36.9 ??C (98.4 ??F) 07/16/2024 8:07 AM CS T Respiratory Rate 14 07/16/2024 8:07 AM DIRECTOR PATIENT FINANCIAL SERVICES Oxygen Saturation 98% 07/16/2024 8:07 AM DIRECTOR PATIENT FINANCIAL SERVICES Inhaled Oxygen Concentration - - Weight 104.6 kg (230 lb 11.2 oz) 07/16/2024 8:07 AM DIRECTOR PATIENT FINANCIAL SERVICES Height 170.2 cm (5' 7 ) 07/16/2024 8:07 AM DIRECTOR PATIENT FINANCIAL SERVICES Body Mass Index 36.13 07/16/2024 8:07 AM DIRECTOR PATIENT FINANCIAL SERVICES Plan of Treatment Upcoming Encounters Date Type Department Care Team (Late st Contact Info) Description 09/24/2024 2:00 PM DIRECTOR PATIENT FINANCIAL SERVICES Office Visit [facility] Medical Group Family & Internal Medicine [address] [address] Carla Holt FRICKERTRON CHECKER [address] [place] [address] Health Maintenance Due Date Last Done Comments Cervical Cancer Screening Pa p Smear (Age 30 to 64) Every 3 Years 1976 Annual Physical 1979 Hepatitis C 1994 Hepatitis B Vaccines (2 of 3 - 19+ 3-dose series) 08/26/2003 07/29/2003 Cervical Cancer Screening Pa p with HPV Testing (Age 30 to 64) Every 5 Years 2006 Cervical Cancer Screening with HPV 2006 Mammogram Screening 2016 COVID-19 Vaccine (2023-2 5 season) 2025 Postponed from 05/06 (Patient Refused) Influenza Adult (#1) 2025 06/05/2020 Postpon ed from 06/05/2024 (Patient Refused) Colorectal Cancer Screening FIT-DNA (3 Years) 01/10/2027 01/11/2024, 01/11/2024 DTaP, Tdap and Td Vaccines ( 2 - Td or Tdap) 01/09/2030 01/10/2020, 07/29/2003 Meningococcal Vaccine Aged Out No gucci nancy eligible based on patient's age to complete this topic Pneumococcal Vaccine: Pediatrics (0 to 5 Years) and At-Risk Patients (6 to 64 Years) Aged Out No longer eligible b ased on patient's age to complete this topic RSV Immunizations Under 20 Months Aged Out No longer eligible b ased on patient's age to complete this topic Procedures Procedure Name Priority Date/Time Associated Diagnosis Comments COLOGUARD (EXACT SCIENCE) Routine 01/11/2024 7:00 AM CDT Screening for colon cancer from Last 3 Months or Most Recently Relevant to Health Maintenance Results * COLOGUARD (EXACT SCIENCE) (01/11/2024 7:00 AM CDT) COLOGUARD RESULT Negative Negative [facility] (CLIA #:[id number]) Comment: NEGATIVE TEST RESULT. A negative Cologuard result indicates a low likelihood that a colorectal cancer (CRC) or advanced adenoma (adenomatous polyps with more advanced pre-malignant features) ??is present. The chance that a person with a negative Cologuard test has a colorectal cancer is less than 1 in 1500 (negative predictive value >99.9%) or has an ??advanced adenoma is less than ??5.3% (negative predictive value 94.7%). These data are based on a prospective cross-sectional study of 10,000 individuals at average risk for colorectal cancer who were screened with both Cologuard and colonoscopy. (Nelson Patten al, N Engl J Med 2014;370(14):1286- 1297) The normal value (reference range) for this assay is negative. COLOGUARD RE-SCREENING RECOMMENDATION: Periodic colorectal cancer screening is an important part of preventive healthcare for asymptomatic individuals at average risk for colorectal cancer. ??Following a negative Cologuard result, the [place] [employer] Society and U.S. Multi-Society Task Force screening guidelines recommend a Cologuard re-screening interval of 3 years. References: [place] [employer] Guideline for Colorectal Cancer Screening: https://www.cancer.org/cancer/dxrrm-oqwbrn-yuzplp/clkpciseb-rttkjgqcb-sprudnb/ac s-rec ommendations.html.; Keyur DK, Dami CR, Naomi MaloneK, Colorectal Cancer Screening: Recommendations for Physicians and Patients from the U.S. Multi-Society Task Force on Colorectal Cancer Screening , Am J Gastroenterology 2017; 112:0460-3834. TEST DESCRIPTION: Composite algorithmic analysis of stool DNA-biomarkers with hemoglobin immunoassay. ?? Quantitative values of individual biomarkers are not reportable and are not associated with individual biomarker result reference ranges. Cologuard is intended for colorectal cancer screening of adults of either sex, 45 years or older, who are at average-risk for colorectal cancer (CRC). Cologuard has been approved for use by the U.S. FDA. The performance of Cologuard was established in a cross sectional study of average-risk adults aged 50-84. Cologuard performance in patients ages 45 to 49 years was estimated by sub-group analysis of near-age groups. Colonoscopies performed for a positive result may find as the most clinically significant lesion: colorectal cancer [4.0%], advanced adenoma (including sessile serrated polyps greater than or equal to 1cm diameter) [20%] or non- advanced adenoma [31%]; or no colorectal neoplasia [45%]. These estimates are derived from a prospective cross-sectional screening study of 10,000 individuals at average risk for colorectal cancer who were screened with both Cologuard and colonoscopy. (Nelson Patten al, N Engl J Med 2014;370(14):9882-5059.) Cologuard may produce a false negative or false positive result (no colorectal cancer or precancerous polyp present at colonoscopy follow up). A negative Cologuard test result does not guarantee the absence of CRC or advanced adenoma (pre-cancer). The current Cologuard screening interval is every 3 years. ([place] [employer] and U.S. Multi-Society Task Force). Cologuard performance data in a 10,000 patient pivotal study using colonoscopy as the reference method can be accessed at the following location: [email or web address].com.com/results. Additional description of the Cologuard test process, warnings and precautions can be found at www.LivelyogPrometheanrd.com. STOOL STOOL SPECIMEN / Unknown 01/11/2024 7:00 AM CDT 01/12/2024 12:10 PM CDT Carla Holt FRICKERTRON CHECKER BODY FLUIDS AND STOOLS ORDERAB LES Final Result [facility] ([facility] [address] [facility]) [address] [place] [address], [employer] (CLIA #:[id number]) [address] [place] [address] from Last 3 Months or Most Recently Relevant to Health Maintenance Insurance [facility] MEDICAID Care Teams Seismology Teacher Relationship Specialty Start Date End Date Carla Holt FNP [address] [place] [address] PCP - General Nurse Practitioner Family 01/05/24
--- OUTSIDE RECORDS SUMMARY | 2024-09-15 19:45 | XMS_ITS | Encounter Summary ---
Author Organization [facility] Address [address] [place] [address]. [place] [address] [place] [address] Care Team Providers Care Histology Assistant Name Role Phone Carla Holt Primary Care Provider [phone] Reason for Visit * Reason Onset Date Comments Lab Results 01/20/2024 Blood work and c ologuard Encounter Details Date Type Department Care Team (Late st Contact Info) Description 01/20/2024 Telephone [facility] Medical Group Family & Internal Medicine [place] [id number] [place] [address] Carla Holt FNP [facility] [place] [address] Lab Results (Blood work and cologuard) Social History Tobacco Use Types Packs/Day Years [...] Progress Notes * Tiny Jones MA - 01/20/2024 11:06 AM CDT Images from the original note were not included. ----- Message from INDU Angeles sent at 01/19/2024 12:20 PM CDT ----- Cologuard is negative Repeat in 3 years Your fsh shows that you are not post menopausal yet. Call the office if you have any further questions or concerns INDU Angeles 01/11/2024 11:16 AM CDT Her labs show she needs to continue working on a heart healthy diet low in saturated fats She should be taking a daily women's multivitamin She should increase her vitamin D supplementing, as we discussed I do not see an FSH and I wonder if we can add this on? Her hormone levels look good but do not totally indicate post menopause Other labs look good 01-20-24: Patient was verbally informed of results and understands instructions. /la,rma documented in this encounter Plan of Treatment Upcoming Encounters Date Type Department Care Team (Late st Contact Info) Description 09/24/2024 2:00 PM DATA ANALYTICS DEVELOPER Office Visit [facility] Medical Group Family & Internal Medicine - [place] [address] [place] [address] Carla Holt FNP [address] [place] [address] documented as of this encounter Visit Diagnoses Not on filedocumented in this encounter Additional Health Concerns Assessment Noted Time PHQ-9 Depression Total Score: 6 01/05/20 9:29 AM CDT documented as of this encounter Care Teams Histology Assistant Relationship Specialty Start Date End Date Carla Holt FNP NPI: [id number] [place] [id number] PCP - General Nurse Practitioner Family 01/05/24 documented as of this encounter
--- OUTSIDE RECORDS SUMMARY | 2024-09-15 19:45 | XMS_ITS | Encounter Summary ---
Author Organization [facility] Address [address] [place] [address]. [place] [address] [place] [address] Care Team Providers Care Structural Analyst Name Role Phone Carla Holt Primary Care Provider [phone] Reason for Referral * Imaging (Routine) - Authorized Specialty Diagnoses / Procedures Referred By Contac t Referred To Contact Diagnoses Screening mammogram for breast cancer Procedures MG SCREENING JUDAH Carla [place] FNP [address] [place] [address] Phone: tel: fax: [address] [address] Phone: tel: fax: Referral ID Status Reason Start Date Expiration Date V isits Requested Visits Authorized [id number] Authorized 07/16/2024 1 1 CONDITIONING INSULATION INSTALLER Reason for Visit * Reason Comments Follow Up Weight loss doing we ll Vitamin D Deficiency Encounter Details Date Type Department Care Team (Late st Contact Info) Description 07/16/2024 8:00 AM AIR CONDITIONING INSULATION INSTALLER Office Visit [facility] Medical Group Family & Internal Medicine - [place] [address] [place] [phone] Carla Holt FNP [address] [place] [address] Follow Up (Weight loss doing well ); Vitamin D Deficiency Social History Tobacco Use Types Packs/Day Years [...] Comments Blood Pressure 110/78 07/16/2024 8:07 AM AIR CONDITIONING INSULATION INSTALLER Pulse 85 07/16/2024 8:07 AM AIR CONDITIONING INSULATION INSTALLER Temperature 36.9 ??C (98.4 ??F) 07/16/2024 8:07 AM CS T Respiratory Rate 14 07/16/2024 8:07 AM AIR CONDITIONING INSULATION INSTALLER Oxygen Saturation 98% 07/16/2024 8:07 AM AIR CONDITIONING INSULATION INSTALLER Inhaled Oxygen Concentration - - Weight 104.6 kg (230 lb 11.2 oz) 07/16/2024 8:07 AM AIR CONDITIONING INSULATION INSTALLER Height 170.2 cm (5' 7 ) 07/16/2024 8:07 AM AIR CONDITIONING INSULATION INSTALLER Body Mass Index 36.13 07/16/2024 8:07 AM AIR CONDITIONING INSULATION INSTALLER documented in this encounter Patient Instructions * Patient Instructions* INDU Angeles - 07/16/2024 8:00 AM AIR CONDITIONING INSULATION INSTALLER Maintain a heart healthy diet and get plenty of daily physical activity Take medications as directed and prescribed Call for any questions or concerns Call and schedule your screening mammogram and we will call you at this result once it comes back Schedule your well woman exam in the near future Follow up in 6 months or sooner if needed CONDITIONING INSULATION INSTALLER documented in this encounter Progress Notes * Carla Holt OCCUPATIONAL HEALTH AND SAFETY OFFICER - 07/16/2024 8:00 AM CSTSummary: weight issues, Office Progress Note Reason for Visit: Follow Up (Weight loss doing well ) and Vitamin D Deficiency History of Present Illness: Cindy presents to the office for follow-up of her chronic conditions She is due for screening mammogram and this will be ordered today. She will schedule her well womanexam in the near future. BMI 36/dyslipidemia She is on Zepbound and is doing well at 7.5 mg weekly. She denies any bothersome side effects with this medication. She has lost around 50 pounds since starting this medication. She is also changed her dietary intake. She does use Medi fiber to help with constipation issues. We will recheck her labs with her next office visit. Vitamin D deficiency She is taking her supplement as previously advised and we will recheck this level at her next office visit. She is declining influenza and COVID-vaccine today. ROS: Review of Systems Constitutional: Negative for [...] orthopnea, claudication, leg swelling and PND. Gastrointestinal: Positive for constipation (Intermittent, chronic not new). Negative for abdominalpain, blood in stool, diarrhea, heartburn, melena, nausea and vomiting. Genitourinary: [...] normal. Mouth/Throat: Mouth: Mucous membranes are moist. Eyes: General: Lids are normal. Vision grossly [...] than 2 seconds. Findings: No rash. Neurological: General: No focal deficit present. Mental Status: She is alert and oriented [...] memory normal. Judgment: Judgment normal. Filed Vitals: 07/16/24 0807 BP: 110/78 Pulse: 85 Resp: 14 Temp: 98.4 ??F (36.9 ??C) SpO2: 98% Weight: 104.6 kg (230 lb 11.2 oz) Height: 1.702 m (5' 7 ) Diagnoses/Impression: 1. Class 2 obesity due to excess calories without serious comorbidity with body mass index (BMI) of36.0 to 36.9 in adult tirzepatide (ZEPBOUND) 10 MG/0.5ML injection 2. Elevated low density lipoprotein (LDL) cholesterol level tirzepatide (ZEPBOUND) 10 MG/0.5ML injection 3. Family history of diabetes mellitus 4. Screening mammogram for breast cancer MG SCREENING JUADH DIGI Recommendations and Plan: 1. Class 2 obesity due to excess calories without serious comorbidity with body mass index (BMI) of36.0 to 36.9 in adult - tirzepatide (ZEPBOUND) 10 MG/0.5ML injection; Inject 10 mg into the skin once a week. Indications: Weight Loss Dispense: 2 mL; Refill: 1 Advised to take medication as prescribed and to call for any issues with getting or taking medication We discussed maintaining a heart healthy diet and getting some daily physical activity as tolerated Advised her to 6-month follow-up, sooner if needed 2. Elevated low density lipoprotein (LDL) cholesterol level - tirzepatide (ZEPBOUND) 10 MG/0.5ML injection; Inject 10 mg into the skin once a week. Indications: Weight Loss Dispense: 2 mL; Refill: 1 Advised to take medication as prescribed and to call for any issues with getting or taking medication We discussed maintaining a heart healthy diet and getting some daily physical activity as tolerated Advised her to 6-month follow-up, sooner if needed 3. Family history of diabetes mellitus We will recheck her blood work at her next office visit 4. Screening mammogram for breast cancer - MG SCREENING JUDAH DIGI; Future Screening exam to be obtained as ordered 5. Vitamin D deficiency, unspecified She was advised to continue vitamin D supplement daily We will recheck this level at her next office visit Orders Placed This Encounter MG SCREENING JUDAH DIGI tirzepatide (ZEPBOUND) 10 MG/0.5ML injection Cannot display discharge medications since this is not an admission. I personally spent a total of 30 minutes on the day of the encounter. This includes tdvz-ts-hihr and qty-dodw-kq-face time I provided on the day of the encounter & excludes time spent performing separately reportable services. PCP: INDU GUZMAN 07/16/2024 Cosigned by Adelfo Delgadillo MD at 08/27/2024 12:52 PM AIR CONDITIONING INSULATION INSTALLER CONDITIONING INSULATION INSTALLER CONDITIONING INSULATION INSTALLER CONDITIONING INSULATION INSTALLER documented in this encounter Plan of Treatment Upcoming Encounters Date Type Department Care Team (Late st Contact Info) Description 09/24/2024 2:00 PM AIR CONDITIONING INSULATION INSTALLER Office Visit [facility] Medical Group Family & Internal Medicine - [address] [address] Carla Holt FNP [address] [place] [address] Scheduled Orders Name Type Priority Associated Diagnoses Orde r Schedule MG SCREENING JUDAH DIGI MAMMO Routine Screening mammogram for breast cancer Expected: 07/16/2024, Expires: 09/15/2025 documented as of this encounter Visit Diagnoses Diagnosis Class 2 obesity due to excess calories without serious comorbidity with body mass index (BMI) of 36.0 to 36.9 in adult- Primary Elevated low density lipoprotein (LDL) cholesterol level Family history of diabetes mellitus Screening mammogram for breast cancer Vitamin D deficiency, unspecified documented in this encounter Additional Health Concerns Assessment Noted Time PHQ-9 Depression Total Score: 6 01/05/20 24 9:29 AM CDT documented as of this encounter Care Teams Structural Analyst Relationship Specialty Start Date End Date Carla Holt FNP [address] [place] [address] PCP - General Nurse Practitioner Family 01/05/24 documented as of this encounter
--- OUTSIDE RECORDS SUMMARY | 2024-09-15 19:45 | XMS_ITS | Encounter Summary ---
Author Organization [facility] Address [address] [place] [address]. [place] [address] [place] [address] Care Team Providers Care Food Safety Specialist Name Role Phone Carla Holt Primary Care Provider [phone] Encounter Details Date Type Department Care Team (Late st Contact Info) Description 01/06/2024 MyChart Message Enc [facility] Medical Group Family & Internal Medicine - [place] [address] [place] [address] Carla Holt FNP [address] [place] [address] Ozempia pill Social History Tobacco Use Types Packs/Day Years [...] st Contact Info) Description 09/24/2024 2:00 PM SUPERVISOR BELT AND LINK ASSEMBLY Office Visit [facility] Medical Group Family & Internal Medicine - [address] [address] Carla Holt FNP [address] [place] [address] documented as of this encounter Visit Diagnoses Not on filedocumented in this encounter Additional Health Concerns Assessment Noted Time PHQ-9 Depression Total Score: 6 01/05/20 24 9:29 AM CDT documented as of this encounter Care Teams Food Safety Specialist Relationship Specialty Start Date End Date Carla Holt FNP [address] [place] [address] PCP - General Nurse Practitioner Family 01/05/24 documented as of this encounter
--- OUTSIDE RECORDS SUMMARY | 2024-09-15 19:45 | XMS_ITS | Encounter Summary ---
Author Organization [facility] Address [address] [place] [address]. [place] [address] [place] [address] Care Team Providers Care Oil Lease Broker Name Role Phone Carla Holt Primary Care Provider [phone] Reason for Visit * Reason Onset Date Comments Record Request 02/13/2024 Encounter Details Date Type Department Care Team (Late st Contact Info) Description 02/13/2024 Telephone [facility] Medical Group Family & Internal Medicine [facility] [address] [place] [address] Carla Holt FNP [address] [place] [address] Record Request Social History Tobacco Use Types Packs/Day Years [...] as of this encounter Progress Notes * Aisha Sanchez MA - 02/13/2024 4:15 PM CDT Received most recent mammogram and this date is 11/25/21 and sent to PCP * Aisha Sanchez MA - 02/13/2024 3:32 PM CDT I have faxed [facility] for mammogram report documented in this encounter Plan of Treatment Upcoming Encounters Date Type Department Care Team (Late st Contact Info) Description 09/24/2024 2:00 PM MARKET GARDENER Office Visit [facility] Medical Group Family & Internal Medicine - [address] [address] Carla Holt FNP [address] [place] [address] documented as of this encounter Visit Diagnoses Not on filedocumented in this encounter Additional Health Concerns Assessment Noted Time PHQ-9 Depression Total Score: 6 01/05/20 24 9:29 AM CDT documented as of this encounter Care Teams Oil Lease Broker Relationship Specialty Start Date End Date Carla Holt FNP [address] [place] [address] PCP - General Nurse Practitioner Family 01/05/24 documented as of this encounter
--- OUTSIDE RECORDS SUMMARY | 2024-09-15 19:45 | XMS_ITS | Encounter Summary ---
Author Organization [facility] [place] Address [address] [place] [address]. [place] [address] [place] [address] Care Team Providers Care Director Dietetics Department Name Role Phone Carla Holt Primary Care Provider Reason for Visit * Reason Onset Date Comments Advice 01/11/2024 Orders 01/11/2024 Encounter Details Date Type Department Care Team (Late st Contact Info) Description 01/11/2024 Telephone [facility] Medical Group Family & Internal Medicine [address] [address] Carla Holt FNP [address] [place] [address] Advice; Orders Social History Tobacco Use Types Packs/Day Years [...] as of this encounter Progress Notes * Camila Landeros MA - 01/12/2024 2:08 PM CDT Spoke with patient and informed her of results. The * Camila Humphrey - 01/12/2024 7:45 AM CDT Pt Called in no one available stated okay to return her call. * Anjali Santacruz MA - 01/11/2024 3:50 PM CDT Tried calling the patient to advise of results however no answer lvm to return call. * INDU Angeles - 01/11/2024 3:07 PM CDT You can let her know about her results and let her know that if the FSH is abnormal, we will call her * Anjali Santacruz MA - 01/11/2024 2:56 PM CDT Called priority lab to add fsh testing. Advised as long as the order is put in today test can be ran. Order placed. Would you like for the patient to be advised of the labs received or wait for the results of the FSH? Please advise. * Anjali Santacruz MA - 01/11/2024 2:54 PM CDT ----- Message from INDU Angeles sent at 01/11/2024 11:16 AM CDT ----- Her labs show she needs to continue [...] indicate post menopause Other labs look good documented in this encounter Plan of Treatment Upcoming Encounters Date Type Department Care Team (Late st Contact Info) Description 09/24/2024 2:00 PM RECEIVING WEIGHER Office Visit [facility] Medical Group Family & Internal Medicine - [address] [address] Carla Holt FNP [address] [place] [address] documented as of this encounter Results * FSH, FOLLICLE STIM HORMONE (01/05/2024 11:09 AM CDT) FSH 4.0 MIU/ML 01/11/2024 7:16 PM CDT [facility] Comment: FOLLIC PHASE: 2.3 TO 12.6 mIU/mL MID CYCLE: 5.2 TO 17.5 mIU/mL LUTEAL PHASE: 1.7 TO 12.9 mIU/mL POST MENOPAUSAL NOT ON THERAPY: 12.7 TO 132.2 mIU/mL ASSAY PERFORMED BY CHEMILUMINESCENCE METHODOLOGY USING SIEMENS DIMENSION VISTA REAGENT. PATIENT RESULTS DETERMINED BY ASSAYS USING DIFFERENT MANUFACTURERS FOR METHODS MAY NOT BE COMPARABLE. 01/05/2024 11:0 9 AM CDT [facility] Final Result [facility] [address] [place] [address], [id number] documented in this encounter Visit Diagnoses Diagnosis Amenorrhea- Primary Absence of menstruation documented in this encounter Additional Health Concerns Assessment Noted Time PHQ-9 Depression Total Score: 6 01/05/20 24 9:29 AM CDT documented as of this encounter Care Teams Director Dietetics Department Relationship Specialty Start Date End Date Carla Holt FNP [address] [place] [address] PCP - General Nurse Practitioner Family 01/05/24 documented as of this encounter
--- OUTSIDE RECORDS SUMMARY | 2024-09-15 19:45 | XMS_ITS | Encounter Summary ---
Author Organization [facility] Address [address] [place] [address]. [place] [address] [place] [address] Care Team Providers Care Division Director Name Role Phone Unavailable Primary Care Provider Unavailabl e Encounter Details Date Type Department Care Team (Late st Contact Info) Description 08/06/2010 Abstract [facility] [place] [address] , Generic ConversionMD Social History Tobacco Use [...] st Contact Info) Description 09/24/2024 2:00 PM BUSINESS ANALYTICS FACULTY MEMBER Office Visit [facility] Medical Group Family & Internal Medicine [address] [address] Carla Holt FNP [address] [place] [address] documented as of this encounter Visit Diagnoses Diagnosis Other known or suspected abnormality, not elsewhere classified, affecting management of mother, antepartum condition or complication (HHS/HCC) Other known or suspected abnormality, not elsewhere classified, affecting management of mother, antepartum condition or complication documented in this encounter
--- OUTSIDE RECORDS SUMMARY | 2024-09-15 19:45 | XMS_ITS | Encounter Summary ---
Author Organization [facility] Address [address] [place] [address]. 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) Social History Tobacco Use Types Packs/Day Years Used Date Smoking Tobacco: Never Smokeless Tobacco: Never Tobacco Cessation:Counseling Given: No Alcohol Use Standard Drinks/Week Comments Yes 0 [...] Sign Reading Time Taken Comments Blood Pressure 130/84 01/05/2024 10:30 AM CDT Pulse 72 01/05/2024 9:33 AM CDT Temperature 36.9 ??C (98.4 ??F) 01/05/2024 9:33 AM CD T Respiratory Rate 18 01/05/2024 9:33 AM CDT Oxygen Saturation 98% 01/05/2024 9:33 AM CDT Inhaled Oxygen Concentration - - Weight 125.1 kg (275 lb 12.8 oz) 01/05/2024 9:33 AM CDT Height 170.2 cm (5' 7 ) 01/05/2024 9:33 AM CDT Body Mass Index 43.2 01/05/2024 9:33 AM CDT documented in this encounter Patient Instructions * Patient Instructions* INDU Angeles - 01/05/2024 9:20 AM CDT Maintain a heart healthy diet and get plenty of daily physical activity Take medications as directed and prescribed Keep track of your daily caloric intake as we discussed We will call you with your lab results when they come back Call for any questions or concerns Follow up in one month, after starting the weight loss medication, sooner if needed. 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 She reports aninsignificant medical history for herself. She reports to have had her routine blood work well over a year ago and is fasting to get them donetoday. She is concerned about losing weight with her BMI at 43. She has tried counting calories, keto dietand huynh diet in the past without any success. She does skip meals at times. She has tried phentermine in the past and this has worked for her. She would like to try a medication to help with weight loss. She reports that she has never been dx with any chronic conditions or on medication for anything. She lives with her significant other, who she has been with for several years and denies any domestic violence or abuse in her life. She reports she feels safe. She has had 3 pregnancies with 2 deliveries and 1 ectopic . She reports that she gets her screening mammogram and Pap smear at [facility]. She reports her last mammogram was done April 2023. She reports that her menstrual cycles are irregular and sometimes she has 2 cycles amonth. She is due for a screening for colon cancer and is agreeable to getting the cologuard testing done. She does have a family history of diabetes in her mother. We will check an A1C today. ROS: Review of Systems Constitutional: Negative [...] Marital status: Tobacco Use Smoking status: Never Smokeless tobacco: Never Vaping Use Vaping [...] There is normal jaw occlusion. Right Ear: Hearing, tympanic membrane, ear canal and external ear normal. Left Ear: Hearing, tympanic membrane, ear canal and external ear normal. Nose: Nose normal. Mouth/Throat: Mouth: Mucous membranes are moist. Pharynx: Oropharynx is clear. Uvula midline. Eyes: General: Lids are normal. Vision grossly [...] or muscular tenderness. Normal range of motion. Lymphadenopathy: Cervical: No cervical adenopathy. Skin: General: [...] Cognition and memory normal. Judgment: Judgment normal. Recent Results (from the past 336 hour(s)) COMPREHENSIVE METABOLIC PANEL Collection Time: 01/05/24 11:09 AM Result Value Ref Range SODIUM S/P/B 139 136 - 145 MMOL/L POTASSIUM S/P/B 4.3 3.5 - 5.1 MMOL/L CHLORIDE S/P/B 103 98 - 107 MMOL/L CO2 27.1 21 - 32 MMOL/L GLUCOSE 90 70 - 99 MG/DL BUN 10 7 - 18 MG/DL CREATININE S/P/B 0.86 0.55 - 1.02 MG/DL CALCIUM S/P/B 8.7 8.4 - 10.5 MG/DL BILIRUBIN TOTAL S/P/B 0.4 0.2 - 1.0 MG/DL ALKALINE PHOSPHATASE S/P/B 115 (H) 39 - 100 U/L AST 18 15 - 37 U/L ALT 23 14 - 59 U/L TOTAL PROTEIN S/P/B 7.6 6.4 - 8.2 G/DL ALBUMIN S/P/B 3.5 3.4 - 5.0 G/DL ANION GAP 8.9 5 - 15 MMOL/L OSMOLALITY (CALC) 287 MOSM/KG GFR ESTIMATE 84 (L) >90 ML/MIN/1.73 M2 GFR NOTES GFR REFERENCES: INSULIN,TOTAL Collection Time: 01/05/24 11:09 AM Result Value Ref Range INSULIN 23.2 2.6 - 37.6 uIU/ML PROGESTERONE Collection Time: 01/05/24 11:09 AM Result Value Ref Range PROGESTERONE 0.7 NG/ML ESTRADIOL Collection Time: 01/05/24 11:09 AM Result Value Ref Range ESTRADIOL 225 PG/ML MAGNESIUM Collection Time: 01/05/24 11:09 AM Result Value Ref Range MAGNESIUM 1.9 1.8 - 2.4 MG/DL FOLIC ACID SERUM Collection Time: 01/05/24 11:09 AM Result Value Ref Range FOLATE >20.0 8.6 - 58.9 NG/ML VITAMIN B-12 Collection Time: 01/05/24 11:09 AM Result Value Ref Range VITAMIN B12 S/P/B 339 193 - 986 PG/ML URIC ACID BLOOD Collection Time: 01/05/24 11:09 AM Result Value Ref Range URIC ACID 5.2 2.6 - 6.0 MG/DL URINALYSIS WI REFLEX TO CULTURE Collection Time: 01/05/24 11:09 AM Specimen: URINE, CLEAN CATCH Result Value Ref Range COLOR (U) YELLOW TRANSPARENCY CLEAR CLEAR SPECIFIC GRAVITY (U) 1.020 1.003 - 1.040 U PH 6.0 5.0 - 9.0 PROTEIN RANDOM (U) NEGATIVE NEGATIVE GLUCOSE (U) NEGATIVE NEGATIVE KETONES (U) NEGATIVE NEGATIVE BILIRUBIN (U) NEGATIVE NEGATIVE BLOOD (U) NEGATIVE NEGATIVE UROBILINOGEN 0.2 0.0 - 2.0 EU/DL NITRITES NEGATIVE NEGATIVE LEUKOCYTES (U) NEGATIVE NEGATIVE REFLEX URINE CULTURE: CULTURE IS NOT INDICATED RBC/HPF 0-3 0 - 3 /HPF WBC/HPF 0-3 0 - 3 /HPF EPI/HPF 0-3 /HPF BACTERIA (U) TRACE (A) NONE SEEN MUCUS MODERATE AMORPHOUS SEDIMENT PRESENT VITAMIN D, 25 OH Collection Time: 01/05/24 11:09 AM Result Value Ref Range VITAMIN D 25 HYDROXY TOTAL S/P/B 44.7 30 - 100 NG/ML TSH W/REFLEX Collection Time: 01/05/24 11:09 AM Result Value Ref Range TSH 2.768 0.358 - 3.740 uIU/ML CBC W/DIFF AUTOMATED Collection Time: 01/05/24 11:09 AM Result Value Ref Range WBC 10.81 (H) 4.00 - 10.80 x10'3/uL RBC 4.44 4.10 - 5.40 x10'6/uL HGB 12.9 12.0 - 16.0 G/DL HCT 40.0 36.0 - 47.0 % MCV 90.1 78.0 - 100.0 FL MCH 29.1 27.0 - 31.0 PG MCHC 32.3 (L) 33.0 - 36.0 G/DL RDW 14.1 11.5 - 14.5 % PLT 405 (H) 150 - 350 x10'3/uL MPV 9.9 7.4 - 10.4 FL DIFFERENTIAL TYPE AUTOMATED DIFFERENTIAL NEUTROPHILS 66.4 % LYMPHOCYTES 25.0 % MONOCYTES 5.4 % EOSINOPHILS 2.4 % BASOPHILS 0.5 % IMMATURE GRANS 0.3 % ABS. NEUTROPHILS 7.19 1.60 - 8.30 x10'3/uL ABS. LYMPHOCYTES 2.70 0.80 - 4.70 x10'3/uL ABS. MONOCYTES 0.58 0.00 - 1.50 x10'3/uL ABS. EOSINOPHILS 0.26 0.00 - 0.40 x10'3/uL ABS. BASOPHILS 0.05 0.00 - 0.20 x10'3/uL ABS. IMMATURE GRANULOCYTES 0.03 0.00 - 0.03 x10'3/uL LIPID PANEL Collection Time: 01/05/24 11:09 AM Result Value Ref Range CHOLESTEROL 193 <200 MG/DL TRIGLYCERIDES 106 <150 MG/DL HDL 42 >40 MG/DL LDL-C 130 (H) <100 MG/DL VLDL CALCULATION 21 5 - 28 MG/DL CHOL/HDL RATIO 4.6 (H) 0.0 - 4.0 LDL/HDL 3.1 (H) 0.41 - 2.13 NON HDL CHOLESTEROL 151 (H) <140 MG/DL A1C (BACK OFFICE) Collection Time: 01/06/24 12:00 AM Result Value Ref Range HGB A1C 5.4 % Filed Vitals: 01/05/24 0933 01/05/24 1030 BP: (!) 139/99 130/84 Pulse: 72 Resp: 18 Temp: 98.4 ??F (36.9 ??C) TempSrc: Temporal SpO2: 98% Weight: 125.1 kg (275 lb 12.8 oz) Height: 1.702 m (5' 7 ) Diagnoses/Impression: 1. Encounter for lipid screening for cardiovascular disease LIPID PANEL VENIPUNC ARM DRAW 2. Screening for colon cancer COLOGUARD ([employer] SCIENCE) 3. Screening for endocrine, nutritional, metabolic and immunity disorder 4. Encounter for medical examination to establish care CBC W/DIFF AUTOMATED TSH W/REFLEX URINALYSIS WI REFLEX TO CULTURE URIC ACID BLOOD COMPREHENSIVE METABOLIC PANEL VITAMIN B-12 FOLIC ACID SERUM MAGNESIUM VENIPUNC ARM DRAW 5. Vitamin D deficiency, unspecified VITAMIN D, 25 OH VENIPUNC ARM DRAW 6. BMI 40.0-44.9, adult ([facility]) CBC W/DIFF AUTOMATED LIPID PANEL TSH W/REFLEX URINALYSIS WI REFLEX TO CULTURE URIC ACID BLOOD COMPREHENSIVE METABOLIC PANEL VITAMIN B-12 FOLIC ACID SERUM MAGNESIUM VENIPUNC ARM DRAW tirzepatide (ZEPBOUND) 2.5 MG/0.5ML injection ESTRADIOL PROGESTERONE INSULIN,TOTAL A1C (BACK OFFICE) CANCELED: DHEA-SULFATE CANCELED: TESTOSTERONE, FREE & TOTAL 7. Perimenopausal VENIPUNC ARM DRAW ESTRADIOL PROGESTERONE INSULIN,TOTAL TESTOSTERONE, FREE & TOTAL DHEA-SULFATE CANCELED: DHEA-SULFATE CANCELED: TESTOSTERONE, FREE & TOTAL 8. Family history of diabetes mellitus (DM) A1C (BACK OFFICE) Recommendations and Plan: 1. Encounter for lipid screening for cardiovascular disease - LIPID PANEL; Future - VENIPUNC ARM DRAW - LIPID PANEL Advised to maintain a heart healthy diet and get some daily physical activity Labs to be obtained as ordered Routine follow-up advised 2. Screening for colon cancer - COLOGUARD ([employer]) Screening test to be obtained as ordered 3. Screening for endocrine, nutritional, metabolic and immunity disorder Labs to be obtained as ordered 4. Encounter for medical examination to establish care - CBC W/DIFF AUTOMATED; Future - TSH W/REFLEX; Future - URINALYSIS WI REFLEX TO CULTURE; Future - URIC ACID BLOOD; Future - COMPREHENSIVE METABOLIC PANEL; Future - VITAMIN B-12; Future - FOLIC ACID SERUM; Future - MAGNESIUM; Future - VENIPUNC ARM DRAW - COMPREHENSIVE METABOLIC PANEL - MAGNESIUM - FOLIC ACID SERUM - VITAMIN B-12 - URIC ACID BLOOD - URINALYSIS WI REFLEX TO CULTURE - TSH W/REFLEX - CBC W/DIFF AUTOMATED Labs to be obtained as ordered 5. Vitamin D deficiency, unspecified - VITAMIN D, 25 OH; Future - VENIPUNC ARM DRAW - VITAMIN D, 25 OH Advised to continue supplement Labs to be obtained as ordered 1 month follow-up advised, sooner if needed 6. BMI 40.0-44.9, adult ([facility]) - CBC W/DIFF AUTOMATED; Future - LIPID PANEL; Future - TSH W/REFLEX; Future - URINALYSIS WI REFLEX TO CULTURE; Future - URIC ACID BLOOD; Future - COMPREHENSIVE METABOLIC PANEL; Future - VITAMIN B-12; Future - FOLIC ACID SERUM; Future - MAGNESIUM; Future - VENIPUNC ARM DRAW - tirzepatide (ZEPBOUND) 2.5 MG/0.5ML injection; Inject 2.5 mg into the skin once a week. Dispense:2 mL; Refill: 0 - ESTRADIOL; Future - PROGESTERONE; Future - INSULIN,TOTAL; Future - A1C (BACK OFFICE) - COMPREHENSIVE METABOLIC PANEL - INSULIN,TOTAL - PROGESTERONE - ESTRADIOL - MAGNESIUM - FOLIC ACID SERUM - VITAMIN B-12 - URIC ACID BLOOD - URINALYSIS WI REFLEX TO CULTURE - TSH W/REFLEX - CBC W/DIFF AUTOMATED - LIPID PANEL Advised to start the medication as prescribed and let me know if she cannot get or has any trouble with taking this medication She will maintain a heart healthy diet and get some daily physical activity as tolerated Labs to be obtained as ordered 1 month follow-up was advised, sooner if needed 7. Perimenopausal - VENIPUNC ARM DRAW - ESTRADIOL; Future - PROGESTERONE; Future - INSULIN,TOTAL; Future - INSULIN,TOTAL - PROGESTERONE - ESTRADIOL - TESTOSTERONE, FREE & TOTAL; Future - DHEA-SULFATE; Future - TESTOSTERONE, FREE & TOTAL - DHEA-SULFATE Labs to be obtained as ordered 8. Family history of diabetes mellitus (DM) - A1C (BACK OFFICE) Labs to be obtained as ordered Orders Placed This Encounter VENIPUNC ARM DRAW CBC W/DIFF AUTOMATED LIPID PANEL TSH W/REFLEX VITAMIN D, 25 OH URINALYSIS WI REFLEX TO CULTURE URIC ACID BLOOD COMPREHENSIVE METABOLIC PANEL VITAMIN B-12 FOLIC ACID SERUM MAGNESIUM ESTRADIOL PROGESTERONE INSULIN,TOTAL A1C (BACK OFFICE) TESTOSTERONE, FREE & TOTAL DHEA-SULFATE tirzepatide (ZEPBOUND) 2.5 MG/0.5ML injection COLOGUARD ([employer]) Cannot display discharge medications since this is not an admission. I personally spent a total of 45 minutes on the day of the encounter. This includes [id number] and xrd-tert-hd-face time I provided on the day of the encounter & excludes time spent performing separately reportable services. PCP: INDU GUZMAN 01/08/2024 * INDU Angeles - 01/05/2024 9:20 AM CDT Her labs show she needs [...] indicate post menopause Other labs look good * INDU Angeles - 01/05/2024 9:20 AM CDT Your fsh shows that you are not post menopausal yet. 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 Visit [facility] Family & Internal Medicine - [address] [phone] Carla Holt FNP [address] [place] [phone] documented as of this encounter Procedures Procedure Name Priority Date/Time Associated Diagnosis Comments COLOGUARD ([employer]) Routine 01/11/2024 7:00 AM CDT Screening for colon cancer HEMOGLOBIN, GLYCOSYLATED Routine 01/06/2024 BMI 40.0-44.9, adult ([facility]) Family history of diabetes mellitus (DM) URINALYSIS WI REFLEX TO CULTURE Routine 01/05/2024 11:09 AM CDT Encounter for medical examination to establish care BMI 40.0-44.9, adult ([facility]) TSH W/REFLEX Routine 01/05/2024 11:09 AM CDT Encounter for medical examination to establish care BMI 40.0-44.9, adult ([facility]) VITAMIN B-12 Routine 01/05/2024 11:09 AM CDT Encounter for medical examination to establish care BMI 40.0-44.9, adult ([facility]) COMPREHENSIVE METABOLIC PANEL Routine 01/05/2024 11:09 AM CDT Encounter for medical examination to establish care BMI 40.0-44.9, adult ([facility]) LIPID PANEL Routine 01/05/2024 11:09 AM CDT Encounter for lipid screening for cardiovascular disease BMI 40.0-44.9, adult ([facility]) FSH, FOLLICLE STIM HORMONE Routine 01/05/2024 11:09 AM CDT Amenorrhea ESTRADIOL Routine 01/05/2024 11:09 AM CDT BMI 40.0-44.9, adult ([facility]) Perimenopausal FOLIC ACID SERUM Routine 01/05/2024 11:0 9 AM CDT Encounter for medical examination to establish care BMI 40.0-44.9, adult ([facility]) CBC W/DIFF AUTOMATED Routine 01/05/2024 11:09 AM CDT Encounter for medical examination to establish care BMI 40.0-44.9, adult ([facility]) PROGESTERONE Routine 01/05/2024 11:09 AM CDT BMI 40.0-44.9, adult ([facility]) Perimenopausal VITAMIN D, 25 OH Routine 01/05/2024 11:0 9 AM CDT Vitamin D deficiency, unspecified INSULIN,TOTAL Routine 01/05/2024 11:09 AM CDT BMI 40.0-44.9, adult ([facility]) Perimenopausal MAGNESIUM Routine 01/05/2024 11:09 AM CDT Encounter for medical examination to establish care BMI 40.0-44.9, adult ([facility]) URIC ACID BLOOD Routine 01/05/2024 11:09 AM CDT Encounter for medical examination to establish care BMI 40.0-44.9, adult ([facility]) TESTOSTERONE, FREE & TOTAL Routine 01/05/2024 10:58 AM CDT Perimenopausal DHEA-SULFATE Routine 01/05/2024 10:58 AM CDT Perimenopausal COLLECTION VENOUS BLOOD VENIPUNCTURE Routine 01/05/2024 10:11 AM CDT Encounter for lipid screening for cardiovascular disease Encounter for medical examination to establish care Vitamin D deficiency, unspecified BMI 40.0-44.9, adult ([facility]) Perimenopausal documented in this encounter Results * COLOGUARD ([employer]) (01/11/2024 7:00 AM CDT) COLOGUARD RESULT Negative Negative [employer] (CLIA #:[id number]) Comment: NEGATIVE TEST RESULT. A negative Cologuard [...] screened with both Cologuard and colonoscopy. (Nelson Milan. eddi al, N Engl J Med 2014;370(14):1286- 1297) The normal value (reference range) for this assay is negative. COLOGUARD RE-SCREENING RECOMMENDATION: Periodic colorectal cancer screening is an important part of preventive healthcare for asymptomatic individuals at average risk for colorectal cancer. ??Following a negative Cologuard result, the [place] [employer] and U.S. Multi-Society Task Force screening guidelines recommend a Cologuard re-screening interval of 3 years. References: [place] [employer] Guideline for Colorectal Cancer Screening: https://www.cancer.org/cancer/rhxhb-yvhyam-olbykn/slyhcdtpb-occljqfxs-kdxkmju/ac s-rec ommendations.html.; Keyur BARTH, Dami AYALA, Naomi MaloneK, Colorectal Cancer Screening: Recommendations for Physicians and Patients from the U.S. Multi-Society Task Force on Colorectal Cancer Screening , Am J Gastroenterology 2017; 112:8590-2742. TEST DESCRIPTION: Composite algorithmic analysis of stool [...] screened with both Cologuard and colonoscopy. (Nelson Perea, N Engl J Med 2014;370(14):7689-2107.) Cologuard may produce a false negative or false positive result (no colorectal cancer or precancerous polyp present at colonoscopy follow up). A negative Cologuard test result does not guarantee the absence of CRC or advanced adenoma (pre-cancer). The current Cologuard screening interval is every 3 years. ([place] [employer] and U.S. Multi-Society Task Force). Cologuard performance data in a 10,000 patient pivotal study using colonoscopy as the reference method can be accessed at the following location: www.Aicent.BladeLogic/results. Additional description of the Cologuard test process, warnings and precautions can be found at www.cologuard.com. STOOL STOOL SPECIMEN / Unknown 01/11/2024 7:00 AM CDT 01/12/2024 12:10 PM CDT Carla DANP BODY FLUIDS AND STOOLS ORDERAB LES Final Result Performing Organization Address [facility] Co de Phone Number [facility] ([address]) [address] [place] [address], [employer] (CLIA #:[id number]) [address] [place] [address] * A1C (BACK OFFICE) (01/06/2024) HGB A1C 5.4 % [facility] 01/06/2024 Carla [facility] Final Result Performing Organization Address [facility] Co de Phone Number [facility] [address] [place] [address], [place] * FSH, FOLLICLE STIM HORMONE (01/05/2024 11:09 AM CDT) FSH 4.0 MIU/ML 01/11/2024 7:16 PM CDT [facility] Comment: FOLLIC PHASE: 2.3 TO 12.6 mIU/mL MID CYCLE: 5.2 TO 17.5 mIU/mL LUTEAL PHASE: 1.7 TO 12.9 mIU/mL POST MENOPAUSAL NOT ON THERAPY: 12.7 TO 132.2 mIU/mL ASSAY PERFORMED BY CHEMILUMINESCENCE METHODOLOGY USING SIEMENS D[employer] VISTA REAGENT. PATIENT RESULTS DETERMINED BY ASSAYS USING DIFFERENT MANUFACTURERS FOR METHODS MAY NOT BE COMPARABLE. 01/05/2024 11:0 9 AM CDT Carla Holt [facility] Final Result Performing Organization Address [facility] de Phone Number [facility] [address] [place] [address], [id number] * INSULIN,TOTAL (01/05/2024 11:09 AM CDT) INSULIN 23.2 2.6 - 37.6 uIU/ML 01/06/2024 5:56 PM CDT [facility] Comment: ASSAY PERFORMED BY CHEMILUMINESCENCE METHODOLOGY USING [employer]be[employer] XPT REAGENT. PATIENT RESULTS DETERMINED BY ASSAYS USING DIFFERENT MANUFACTURERS FOR METHODS MAY NOT BE COMPARABLE. 01/05/2024 11:0 9 AM CDT Carla Holt [facility] Final Result Performing Organization Address [facility] de Phone Number [facility] [address] [place] [address], [phone] * PROGESTERONE (01/05/2024 11:09 AM CDT) PROGESTERONE 0.7 NG/ML 01/05/2024 9:12 PM CDT [facility] Comment: FOLLIC PHASE: 0.2 TO 1.7 ng/mL LUTEAL PHASE: 2.3 TO 24.2 ng/mL POST MENAPAUSAL: <0.2 TO 0.9 ng/mL 1ST TRIMESTER: 11.4 TO 41.0 ng/mL 2ND TRIMESTER: 13.9 TO 156.0 ng/mL 3RD TRIMESTER: 51.4 TO >200.0 ASSAY PERFORMED BY CHEMILUMINESCENCE METHODOLOGY USING [employer] D[employer] VISTA REAGENT. PATIENT RESULTS DETERMINED BY ASSAYS USING DIFFERENT MANUFACTURERS FOR METHODS MAY NOT BE COMPARABLE. 01/05/2024 11:0 9 AM CDT Carla Cuipatrick INFECTION PREVENTION COORDINATOR [facility] Final Result [facility] [address] [place] [address], [place] [phone] * ESTRADIOL (01/05/2024 11:09 AM CDT) ESTRADIOL 225 PG/ML 01/05/2024 9:12 PM CDT [facility] Comment: AGE 0 TO 10 YEARS: <11 TO 20 pg/mL FOLLIC PHASE: 21 TO 165 pg/mL MID CYCLE: 50 TO 367 pg/mL LUTEAL PHASE: 40 TO 259 pg/mL POST MENOPAUSAL NOT ON HRT: <11 TO 58 pg/mL POST MENOPAUSAL ON HRT: <11 TO 462 pg/mL ASSAY PERFORMED BY CHEMILUMINESCENCE METHODOLOGY USING [employer] VISTA REAGENT. PATIENT RESULTS DETERMINED BY ASSAYS USING DIFFERENT MANUFACTURERS FOR METHODS MAY NOT BE COMPARABLE. 01/05/2024 11:0 9 AM CDT Carlavalery Cuipatrick INFECTION PREVENTION COORDINATOR [facility] Final Result Performing Organization Address [facility] Co de Phone Number [facility] [address] [place] [address], [place] [phone] * MAGNESIUM (01/05/2024 11:09 AM CDT) MAGNESIUM 1.9 1.8 - 2.4 MG/DL 01/06/2024 10:04 AM CDT [facility] 01/05/2024 11:0 9 AM CDT Carla Holt INFECTION PREVENTION COORDINATOR [facility] Final Result Performing Organization Address City/[facility]/ZIP Co de Phone Number [facility] [address] [place] [address], [place] [phone] * FOLIC ACID SERUM (01/05/2024 11:09 AM CDT) FOLATE >20.0 8.6 - 58.9 NG/ML 01/05/2024 7:52 PM CDT [facility] 01/05/2024 11:0 9 AM CDT Carla Holt [facility] Final Result Performing Organization Address City/[facility]/ZIP Co de Phone Number [facility] [address] [place] [address], [place] [phone] * VITAMIN B-12 (01/05/2024 11:09 AM CDT) VITAMIN B12 S/P/B 339 193 - 986 PG/ML 01/06/2024 10:04 AM CDT [facility] 01/05/2024 11:0 9 AM CDT Carla Cuipatrick [facility] Final Result Performing Organization Address City/[facility]/ZIP Co de Phone Number [place] [address] [place] [address], [place] [phone] * (ABNORMAL) COMPREHENSIVE METABOLIC PANEL (01/05/2024 11:09 AM CDT) SODIUM S/P/B 139 136 - 145 MMOL/L 01/06/2024 10:04 AM CDT [facility] POTASSIUM S/P/B 4.3 3.5 - 5.1 MMOL/L 01/06/2024 10:04 AM CDT [facility] CHLORIDE S/P/B 103 98 - 107 MMOL/L 01/06/2024 10:04 AM CDT [facility] CO2 27.1 21 - 32 MMOL/L 01/06/2024 10:04 AM CDT [facility] GLUCOSE 90 70 - 99 MG/DL 01/06/2024 10:04 AM CDT [facility] BUN 10 7 - 18 MG/DL 01/06/2024 10:04 AM [facility] CREATININE S/P/B 0.86 0.55 - 1.02 MG/DL 01/06/2024 10:04 AM T [facility] CALCIUM S/P/B 8.7 8.4 - 10.5 MG/DL 01/06/2024 10:04 AM CDT [facility] BILIRUBIN TOTAL S/P/B 0.4 0.2 - 1.0 MG/DL 01/06/2024 10:04 AM T [facility] ALKALINE PHOSPHATASE S/P/B 115(H) 39 - 100 U/L 01/06/2024 10:04 AM T [facility] AST 18 15 - 37 U/L 01/06/2024 10:04 AM CDT [facility] ALT 23 14 - 59 U/L 01/06/2024 10:04 AM CDT [facility] TOTAL PROTEIN S/P/B 7.6 6.4 - 8.2 G/DL 01/06/2024 10:04 AM [facility] ALBUMIN S/P/B 3.5 3.4 - 5.0 G/DL 01/06/2024 10:04 AM [facility] ANION GAP 8.9 5 - 15 MMOL/L 01/06/2024 10:04 AM CDT [facility] Comment:REFERENCE RANGE NOT ESTABLISHED OSMOLALITY (CALC) 287 MOSM/KG 024 10:04 AM [facility] Comment:REFERENCE RANGE NOT ESTABLISHED GFR ESTIMATE 84(L) >90 ML/MIN/1. 73 M2 01/06/2024 10:04 AM [facility] GFR NOTES GFR REFERENCE S: 01/06/2024 10:04 AM [facility] Comment: THE ESTIMATED GFR IS CALCULATED USING THE 2020 CKD-EPI EQUATION. THE FOLLOWING CATEGORIES FOR GRADING RENAL FUNCTION ARE RECOMMENDED BY THE INTERNATIONAL SOCIETY OF NEPHROLOGY (KDIGO 2012 CLINICAL PRACTICE GUIDELINE). G1,NORMAL OR HIGH: >89 ml/min/1.73 m2 G2,MILDLY DECREASED: 60-89 ml/min/1.73 m2 G3A,MILDLY TO MODERATELY DECREASED: 45-59 ml/min/1.73 m2 G3B,MODERATELY TO SEVERELY DECREASED: 30-44 ml/min/1.73 m2 G4,SEVERELY DECREASED: 15-29 ml/min/1.73 m2 G5,KIDNEY FAILURE: <15 ml/min/1.73 m2 01/05/2024 11:0 9 AM CDT us Carla Holt [facility] Final Result Performing Organization Address City/[facility]/ZIP Co de Phone Number [address] [address], * URIC ACID BLOOD (01/05/2024 11:09 AM CDT) URIC ACID 5.2 2.6 - 6.0 MG/DL 01/05/2024 7:47 PM CDT [facility] 01/05/2024 11:0 9 AM CDT us Carla Holt [facility] Final Result Performing Organization Address City/[facility] Co de Phone Number [address] [address], [place] [phone] * (ABNORMAL) URINALYSIS WI REFLEX TO CULTURE (01/05/2024 11:09 AM CDT) COLOR (U) YELLOW 01/05/2024 7:45 PM CDT [facility] TRANSPARENCY CLEAR CLEAR 01/05/2024 7:45 PM CDT [facility] SPECIFIC GRAVITY (U) 1.020 1.003 - 1.040 01/05/2024 7:45 PM CDT [facility] U PH 6.0 5.0 - 9.0 01/05/2024 7:45 PM CDT [facility] PROTEIN RANDOM (U) NEGATIVE NEGATIVE 01/05/2024 7:45 PM CDT [facility] GLUCOSE (U) NEGATIVE NEGATIVE 01/05/2024 7:45 PM T [facility] KETONES MG/DL (U) NEGATIVE NEGATIVE 01/05/2024 7:45 PM CDT [facility] BILIRUBIN (U) NEGATIVE NEGATIVE 01/05/2024 7:45 PM T [facility] BLOOD (U) NEGATIVE NEGATIVE 01/05/2024 7:45 PM T [facility] UROBILINOGEN 0.2 0.0 - 2.0 EU/DL 01/05/2024 7:45 PM CDT [facility] NITRITES NEGATIVE NEGATIVE 01/05/2024 7:45 PM CDT [facility] LEUKOCYTES (U) NEGATIVE NEGATIVE 01/05/2024 7:45 PM CDT [facility] REFLEX URINE CULTURE: CULTURE IS NOT INDICATED 01/05/2024 7:45 PM CDT [facility] RBC/HPF 0-3 0 - 3 /HPF 01/05/2024 7:45 PM CDT [facility] WBC/HPF 0-3 0 - 3 /HPF 01/05/2024 7:45 PM CDT [facility] EPI/HPF 0-3 /HPF 01/05/2024 7:45 PM CDT [facility] BACTERIA (U) TRACE(A) NONE SEEN 01/05/2024 7:45 PM CDT [facility] MUCUS MODERATE 01/05/2024 7:45 PM CDT [facility] AMORPHOUS SEDIMENT PRESENT 01/05/2024 7:45 PM CDT [facility] URINE SPECIMEN OBTAINED BY CLEAN CATCH PROCEDURE / Unknown 01/05/2024 11:09 AM CDT Carla DANP URINE ORDERABLES Final Result Performing Organization Address [facility] de Phone Number [facility] [address] [place] [address], * VITAMIN D, 25 OH (01/05/2024 11:09 AM CDT) VITAMIN D 25 HYDROXY TOTAL S/P/B 44.7 30 - 100 NG/ML 01/06/2024 10:04 AM CDT [facility] Comment: ? DEFICIENT ??<20 ?INSUFFICIENT 20-30 ?SUFFICIENT 30-100 01/05/2024 11:0 9 AM CDT Carla Holt [facility] Final Result Performing Organization Address [facility] de Phone Number [address] [address], * TSH W/REFLEX (01/05/2024 11:09 AM CDT) Pathologist [facility] TSH 2.768 0.358 - 3.740 uIU/ML 01/06/2024 10:04 AM CDT [facility] 01/05/2024 11:0 9 AM CDT Carla Cuipatrick IN[facility] PREVENTION COORDIN[facility] Final Result Performing Organization Address [facility] de Phone Number [facility] [address] [place] [address], * (ABNORMAL) LIPID PANEL (01/05/2024 11:09 AM CDT) CHOLESTEROL 193 <200 MG/DL 01/06/2024 10:04 AM CDT [facility] TRIGLYCERIDES 106 <150 MG/DL 01/06/2024 10:04 AM CDT [facility] HDL 42 >40 MG/DL 01/06/2024 10:04 AM CDT [facility] LDL-C 130(H) <100 MG/DL 01/06/2024 10:04 AM CDT [facility] VLDL CALCULATION 21 5 - 28 MG/DL 01/06/2024 10:04 AM CDT [facility] CHOL/HDL RATIO 4.6(H) 0.0 - 4.0 01/06/2024 10:04 AM CDT [facility] LDL/HDL 3.1(H) 0.41 - 2.13 01/06/2024 10:04 AM CDT [facility] NON HDL CHOLESTEROL 151(H) <140 MG/DL 01/06/2024 10:04 AM CDT [facility] 01/05/2024 11:0 9 AM CDT us Carla Holt [facility] Final Result [facility] [address] [place] [address], * (ABNORMAL) CBC W/DIFF AUTOMATED (01/05/2024 11:09 AM CDT) WBC 10.81(H) 4.00 - 10.80 x10'3/uL 01/05/2024 7:27 PM CDT [facility] RBC 4.44 4.10 - 5.40 x10'6/uL 01/05/2024 7:27 PM CDT [facility] HGB 12.9 12.0 - 16.0 G/DL 01/05/2024 7:27 PM CDT [facility] HCT 40.0 36.0 - 47.0 % 01/05/2024 7:27 PM CDT [facility] MCV 90.1 78.0 - 100.0 FL 01/05/2024 7:27 PM CDT [facility] MCH 29.1 27.0 - 31.0 PG 01/05/2024 7:27 PM CDT [facility] MCHC 32.3(L) 33.0 - 36.0 G/DL 01/05/2024 7:27 PM CDT [facility] RDW 14.1 11.5 - 14.5 % 01/05/2024 7:27 PM CDT [facility] PLT 405(H) 150 - 350 x10'3/uL 01/05/2024 7:27 PM CDT [facility] MPV 9.9 7.4 - 10.4 FL 01/05/2024 7:27 PM CDT [facility] DIFFERENTIAL TYPE AUTOMATED DIFFERENTIAL 01/05/2024 7:28 PM CDT [facility] NEUTROPHILS % 66.4 % 01/05/2024 7:28 PM CDT [facility] LYMPHOCYTES % 25.0 % 01/05/2024 7:28 PM CDT [facility] MONOCY[facility] % 5.4 % 01/05/2024 7:28 PM CDT [facility] EOSINOPHILS % 2.4 % 01/05/2024 7:28 PM CDT [facility] BASOPHILS % 0.5 % 01/05/2024 7:28 PM CDT [facility] IMMATURE GRANS % 0.3 % 01/05/2024 7:28 PM CDT [facility] ABS. NEUTROPHILS 7.19 1.60 - 8.30 x10'3/uL 01/05/2024 7:28 PM CDT [facility] ABS. LYMPHOCYTES 2.70 0.80 - 4.70 x10'3/uL 01/05/2024 7:28 PM CDT [facility] ABS. MONOCYTES 0.58 0.00 - 1.50 x10'3/uL 01/05/2024 7:28 PM CDT [facility] ABS. EOSINOPHILS 0.26 0.00 - 0.40 x10'3/uL 01/05/2024 7:28 PM CDT [facility] ABS. BASOPHILS 0.05 0.00 - 0.20 x10'3/uL 01/05/2024 7:28 PM CDT [facility] ABS. IMMATURE GRANULOCYTES 0.03 0.00 - 0.03 x10'3/uL 01/05/2024 7:28 PM CDT [facility] 01/05/2024 11:0 9 AM CDT Carla Holt [facility] Final Result [facility] [address] [place] [address], * DHEA-SULFATE (01/05/2024 10:58 AM CDT) DHEA SULFATE 150 15 - 205 mcg/dL [facility] Comment: DHEA-S values fall with advancing age. For reference, the reference intervals for 31-40 year old patients are: Male: ?? 93-415 mcg/dL Female: ??19-237 mcg/dL 01/05/2024 10:5 8 AM CDT 01/07/2024 3:14 AM CDT Narrative Resulting Agency Comment Performing Organization Information: ?Site ID: [id number] ?Name: [facility] ?Address: [address] [address] ?Director: Amirah Gupta MD us Carla [facility] Final Result [facility] [address] [place] [address], * TESTOSTERONE, FREE & TOTAL (01/05/2024 10:58 AM CDT) TESTOSTERONE TOTAL 38 2 - 45 ng/dL [facility] Comment: For additional information, please refer to https://education.[employer]/faq/FMY094 (This link is being provided for informational/educational purposes only.) (Note) This test was developed and its analytical performance characteristics have been determined by [employer]. It has not been cleared or approved by the FDA. This assay has been validated pursuant to the CLIA regulations and is used for clinical purposes. TESTOSTERONE FREE 3 0.1 - 6.4 pg/mL [facility] Comment: (Note) This test was developed and its analytical performance characteristics have been determined by [employer]. It has not been cleared or approved by the FDA. This assay has been validated pursuant to the CLIA regulations and is used for clinical purposes. [facility] [address] [place] [address],[address] [place] [address] Alvarado Wellington MD, PhD 01/05/2024 10:5 8 AM CDT 01/07/2024 3:14 AM CDT Narrative Resulting Agency Comment Performing Organization Information: ?Site ID: [id number] ?Name: [facility] ?Address: [address] [place] [address], [address] [place] [phone] ?Director: Alvarado Wellington MD,PhD Carla Yanet [facility] Final Result [facility] [address] [place] [address], [address] [place] [phone] documented in this encounter Visit Diagnoses Diagnosis Encounter for lipid screening for cardiovascular disease- Primary Screening for colon cancer Special screening for malignant neoplasms, colon Screening for endocrine, nutritional, metabolic and immunity disorder Screening for other and unspecified endocrine, nutritional, metabolic, and immunity disorders Encounter for medical examination to establish care Vitamin D deficiency, unspecified BMI 40.0-44.9, adult ([facility]) Body Mass Index 40.0-44.9, adult Perimenopausal Symptomatic menopausal or female climacteric states Family history of diabetes mellitus (DM) Family history of diabetes mellitus Amenorrhea Absence of menstruation documented in this encounter Additional Health Concerns Assessment Noted Time PHQ-9 Depression Total Score: 6 01/05/20 24 9:29 AM CDT documented as of this encounter Care Teams Coroner Relationship Specialty Start Date End Date Carla Holt FNP [address] [place] [address] PCP - General Nurse Practitioner Family 01/05/24 documented as of this encounter
--- OUTSIDE RECORDS SUMMARY | 2024-09-15 19:45 | XMS_ITS | Encounter Summary ---
Author Organization [facility] Address [address] [place] [address]. [place] [address] [place] [address] Care Team Providers Care Furniture Servicer Name Role Phone Carla Holt Primary Care Provider [phone] Encounter Details Date Type Department Care Team (Late st Contact Info) Description 03/06/[address] [facility] Family & Internal Medicine - [place] [id number] [place] [address] Carla Holt FNP [address] [place] [address] Zepbound Social History Tobacco Use Types Packs/Day Years [...] as of this encounter Progress Notes * INDU [place] - 03/06/2024 3:33 PM CDT Okay to increase dose documented in this encounter Plan of Treatment Upcoming Encounters Date Type Department Care Team (Late st Contact Info) Description 09/24/2024 2:00 PM REGISTER REPAIRER Office Visit [facility] Family & Internal Medicine - [place] [address] [place] [address] Carla Holt FNP [address] [place] [address] documented as of this encounter Visit Diagnoses Diagnosis BMI 40.0-44.9, adult ([facility])- Primary Body Mass Index 40.0-44.9, adult documented in this encounter Additional Health Concerns Assessment Noted Time PHQ-9 Depression Total Score: 6 01/05/20 9:29 AM CDT documented as of this encounter Care Teams Furniture Servicer Relationship Specialty Start Date End Date Carla Holt FNP [address] [place] [address] PCP - General Nurse Practitioner Family 01/05/24 documented as of this encounter
--- OUTSIDE RECORDS SUMMARY | 2024-09-15 19:45 | XMS_ITS | Encounter Summary ---
Author Organization [facility] Address [address] [place] [address]. [place] [address] [place] [address] Care Team Providers Care Bdc Manager Name Role Phone Unavailable Primary Care Provider Unavailabl e Encounter Details Date Type Department Care Team (Late st Contact Info) Description 02/10/2010 Abstract [facility] [place] [place], [place] [address] , Generic ConversionMD Social History Tobacco Use [...] st Contact Info) Description 09/24/2024 2:00 PM PURCHASING INTERNSHIP Office Visit [facility] Family & Internal Medicine [address] [phone] Carla Holt FNP [address] [place] [address] documented as of this encounter Visit Diagnoses Not on filedocumented in this encounter
--- OUTSIDE RECORDS SUMMARY | 2024-09-15 19:45 | XMS_ITS | Encounter Summary ---
Author Organization [facility] Address [address] [place] [address]. [place] [address] [place] [address] Care Team Providers Care Director Building Name Role Phone Carla Holt Primary Care Provider [phone] Encounter Details Date Type Department Care Team (Latest Contact Info) Description 02/13/2024 Travel Social History Tobacco Use Types Packs/Day [...] st Contact Info) Description 09/24/2024 2:00 PM ELECTRONICS PROCESSOR Office Visit [facility] Family & Internal Medicine [address] [address] Carla Holt FNP [address] [place] [address] documented as of this encounter Visit Diagnoses Not on filedocumented in this encounter Additional Health Concerns Assessment Noted Time PHQ-9 Depression Total Score: 6 01/05/20 24 9:29 AM CDT documented as of this encounter Care Teams Director Building Relationship Specialty Start Date End Date Carla Holt FNP [address] [place] [address] PCP - General Nurse Practitioner Family 01/05/24 documented as of this encounter
--- OUTSIDE RECORDS SUMMARY | 2024-09-15 19:45 | XMS_ITS | Encounter Summary ---
Author Organization [facility] Address [address] [place] [address]. [place] [address] [place] [address] Care Team Providers Care Shuttle Veneering Supervisor Name Role Phone Carla Holt Primary Care Provider [phone] Encounter Details Date Type Department Care Team (Latest Contact Info) Description 01/05/2024 Travel Social History Tobacco Use Types Packs/Day [...] st Contact Info) Description 09/24/2024 2:00 PM YOUTH ADVOCATE Office Visit [facility] Family & Internal Medicine [address] [address] Carla Holt FNP [address] [place] [address] documented as of this encounter Visit Diagnoses Not on filedocumented in this encounter Additional Health Concerns Assessment Noted Time PHQ-9 Depression Total Score: 6 01/05/20 24 9:29 AM CDT documented as of this encounter Care Teams Shuttle Veneering Supervisor Relationship Specialty Start Date End Date Carla Holt FNP [address] [place] [address] PCP - General Nurse Practitioner Family 01/05/24 documented as of this encounter
== END 2024-09-08 13:26 | disposition home or self-care (01) ==
PROVIDERS: Emergency Provider Nurse Practitioner Family; PCP Nurse Practitioner Family
DX: N30.01 Acute cystitis with hematuria (principal)
CPT/HCPCS: 81003; 87077; 87086; 87186; 99213; G0463

== ENCOUNTER 2024-09-15 07:25 | Emergency (ER) | payer BC, MEDICAID, SELFPAY ==
[2024-09-15 07:36] VITALS: BP 138/90; PULSE 115; RESP 20; TEMP 36.4; O2SAT 100
--- NOTE | 2024-09-15 11:03 | ED.ALLEREA ---
HPI - Allergic Reaction General Chief complaint: Allergic Reaction Stated complaint: allergic reaction, hives Time Seen by Provider: 09/15/24 10:55 History of Present Illness HPI narrative: 49-year-old otherwise healthy female presenting to the emergency department for defers urticarial rash. She started herself medication for recent urinary tract infection after several days she started developing a rash that started in her ankles and hands and has spread to diffuse over her body. Spares the palms and soles. No other symptoms besides an itchy urticarial rash. No shortness of breath, throat closing sensation, chest tightness or any difficulty breathing. No nausea, vomiting, diarrhea. She has no history of allergies to her knowledge but this is the 1st time she has ever exposed to sulfa drugs. Denies any other new exposures, detergents, pets or any household cleaning supplies. No at home with any similar symptoms. Related Data Home Medications ?Medication ?Instructions ?Recorded ?Confirmed ?Last Taken ?Type tirzepatide (weight loss) 10 mg subcut 09/08/24 Unknown History mg/0.5 mL subcutaneous pen injector (Zepbound) Allergies Allergy/AdvReac Type Severity Reaction Status Date / Time Sulfa (Sulfonamide Allergy Intermediate Rash Verified 09/15/24 11:07 Antibiotics) Review of Systems Review of Systems: As reviewed above in HPI [facility] Past Medical History Medical History Ectopic Surgical History Surgical History History of salpingectomy Social History Social History Gender identity (if verbalized by the patient): Female Exam Narrative: GENERAL: [Well-appearing, well-nourished, and in no acute distress.] HEAD: [Normocephalic, atraumatic.] EYES: [PERRLA and EOMI.] ENT: Nares clear, no rhinorrhea or epistaxis. Mucous membranes moist. NECK: Supple. CHEST: [Clear to auscultation. No respiratory distress.] HEART: [Regular rate and rhythm]. No murmur heard. [Normal peripheral pulses.] ABDOMEN: [Soft, nondistended], [nontender], [No rigidity or guarding] EXTREMITIES: Normal range of motion. [No edema.] SKIN: Diffuse urticarial rash over the hands, bilateral lower extremities, bilateral upper extremities, back and chest, spares the palms and soles, involved the face and neck. NEURO: [No focal deficits]. Alert and oriented [x3.] PSYCH: [Normal mood and affect.] Course Vital Signs Vital signs: Vital Signs Temperature 36.4 C L 09/15/24 07:36 Pulse Rate 115 H 09/15/24 07:36 Respiratory Rate 20 09/15/24 07:36 Blood Pressure 138/90 09/15/24 07:36 Pulse Oximetry 100 09/15/24 07:36 Oxygen Delivery Room Air 09/15/24 07:36 Temperature 36.4 C L 09/15/24 07:36 Pulse Rate 97 09/15/24 11:21 Respiratory Rate 16 09/15/24 11:21 Blood Pressure 119/89 09/15/24 11:21 Pulse Oximetry 100 09/15/24 11:21 Oxygen Delivery Room Air 09/15/24 07:36 MDM - Allergic Reaction MDM Narrative Medical decision making narrative: 41-year-old female with diffuse urticarial rash likely secondary to recent sulfa drug exposure. She has had no other recent contacts, dermatitis exposures, cleaning supplies, detergents, new pets or any other kind of chemicals. She has diffuse urticarial rash over her hands, bilateral upper extremities, bilateral lower extremities, chest, back, neck and head but does spare the palms and soles. No intraoral involvement. No signs of anaphylaxis as she has only skin involvement, no respiratory involvement or any GI distress. Given the diffuse nature of the urticaria we did obtain IV blood work including BMP and CBC in gave her a cocktail of H1, H2 blockers and steroids. She was given 50 mg of IV Benadryl, 20 mg of IV Pepcid 125 mg of IV Solu-Medrol and re-evaluated. She is slightly tachycardic but afebrile with normal vital signs otherwise. Patient was re-evaluated with improvement and is stable for discharge home with return precautions and instructions. Her urinary tract infection symptoms have since resolved and her urine culture was reviewed from previous visit that shows sensitivity to Bactrim. Patient's allergies were updated here in the ER. Patient was re-evaluated some improvement. Her vital signs have improved she was no longer tachycardic. Still remained afebrile with normal blood pressure. She was provided calamine lotion as she still having some residual itchiness. At this time she is safe and stable for discharge home after being observed here in the emergency department for numerous hours. She will be sent home with a combination of therapies including diphenhydramine, Pepcid and a prednisone burst for the next 5 days. She is also given calamine lotion for symptom control. Patient felt comfortable discharging was given strict return precautions. She will follow-up with regular doctor outpatient. Differential Diagnosis Differential diagnosis: Likely anaphylaxis, allergic reaction, angioedema, adverse reaction to drug, urticaria and other Medical Records Attestation: I reviewed the patient's medical records. Lab Data Attestation: I reviewed the patient's lab results. 09/15/24 11:14 09/15/24 11:14 Labs: Lab Results 09/15/24 Range/Units 11:14 WBC 8.1 (4.5-10.0) K/mm3 RBC 4.29 (4.2-5.4) M/mm3 Hgb 12.7 (12.0-15.0) g/dL Hct 39.1 (37.0-47.0) % MCV 91.1 (80-100) fl MCH 29.6 (26-34) pg MCHC 32.5 (32-36) g/dl RDW 13.4 (11.5-14.5) % Plt Count 389 H D (150-375) k/mm3 MPV 9.7 (7.4-10.4) fl Immature Gran % (Auto) 0.5 (0-0.5) % Neut % (Auto) 74.9 H (45.5-73.1) % Lymph % (Auto) 18.6 (18.3-44.2) % [place] % (Auto) 3.9 (2.6-8.5) % Eos % (Auto) 2.0 (0-4.4) % Baso % (Auto) 0.1 L (0.2-1.2) % Lymph # (Auto) 1.51 (0.9-3.2) K/mm3 [place] # (Auto) 0.3 (0.1-0.6) K/mm3 Eos # (Auto) 0.2 (0-0.3) K/mm3 Baso # (Auto) 0.0 (0.0-0.1) K/mm3 Abs Immat Gran (auto) 0.04 H (0.00-0.031) K/mm3 Absolute Neuts (auto) 6.1 (1.3-6.7) K/mm3 Absolute Nucleated RBC 0.000 (0.0-0.012) K/mm3 Nucleated RBC % 0.0 (0.0-0.2) % Sodium 137 (137-145) mmol/L Potassium 4.5 (3.4-5.0) mmol/L Chloride 104 (98-107) mmol/L Carbon Dioxide 21 L (22-30) mmol/L Anion Gap 12 (4-12) mmol/L BUN 9 (7-17) mg/dL Creatinine 1.01 H (0.7-1.0) mg/dL Estim Creat Clear Calc 74 ml/min Estimated GFR 59 (59 - ) Glucose 99 (65-110) mg/dL Calcium 9.1 (8.4-10.2) mg/dL Discharge Plan Discharge Clinical Impression: Urticaria, Allergic drug reaction Patient Disposition: Home, Self-Care Condition: Stable Instructions: Antibiotic Form, Urticaria (ED), Acute Rash (ED) Additional Instructions: Your symptoms, hives and urticaria or likely secondary to the sulfa drug and are an allergic reaction. Your symptoms are very mild although they are uncomfortable with the itchiness. Your laboratory studies are very reassuring as well as your vital signs. We have treated you with high-dose steroid burst here which will take several hours to reach full effect and we will send you home with her remaining steroid course in addition to medications such as Pepcid and diphenhydramine with appropriate instructions on use. Calamine lotion can be applied on top for itchiness relief until steroids can take full effect which might take some time. If you develop any shortness of breath, swelling in your face, swelling in her tongue or throat closing sensations call emergency services/return to the emergency department immediately Patient Language: Armenian Prescriptions: New famotidine [Pepcid] 40 mg tablet 40 mg PO BID Qty: 20 0RF diphenhydramine HCl 25 mg capsule 25 mg PO TID PRN (Reason: allergic reaction) Qty: 20 0RF prednisone 20 mg tablet 40 mg PO ONCE 5 Days Qty: 10 0RF Calamine Medicated 1-8 % lotion 1 applic topical TID PRN (Reason: itching) Qty: 177 0RF No Action (DME) Aerochamber Plus Z Stat Spacer See Rx Instructions .Route Qty: 1 0RF Rx Instructions: As directed Zepbound 10 mg/0.5 mL pen injector SUBCUT sulfamethoxazole-trimethoprim [Bactrim DS] 800-160 mg tablet 1 tablet PO Q12H 7 Days Qty: 14 0RF Follow-up/Referrals: CANDIS,PRABHU REID [Primary Care Provider] - Time of Disposition: 12:01
[2024-09-15] MEDS: diphenhydrAMINE HCl INJ 50 MG/ML VIAL IV PUSH (11:16)
[2024-09-15] MEDS: methylPREDNISolone SOD SUCC 125 MG VIAL IV PUSH (11:18)
[2024-09-15] MEDS: FAMOTIDINE 20 MG/2 ML VIAL IV PUSH (11:18)
[2024-09-15 11:21] VITALS: BP 119/89; PULSE 97; RESP 16; O2SAT 100
[2024-09-15 11:28] LABS: Basophils Percent Auto 0.1 % (0.2-1.2); Eosinophils Absolute Auto 0.2 K/mm3 (0-0.3); Hematocrit 39.1 % (37.0-47.0); Hemoglobin 12.7 g/dL (12.0-15.0); Immature Granulocyte Absolute 0.04 K/mm3 (0.00-0.031); Immature Granulocyte Percent A 0.5 % (0-0.5); Lymphocytes Absolute Auto 1.51 K/mm3 (0.9-3.2); Lymphocytes Percent Auto 18.6 % (18.3-44.2); Mean Corpuscular HGB Conc 32.5 g/dl (32-36); Mean Corpuscular Hemoglobin 29.6 pg (26-34); Mean Corpuscular Volume 91.1 fl (80-100); Mean Platelet Volume 9.7 fl (7.4-10.4); Monocytes Absolute Auto 0.3 K/mm3 (0.1-0.6); Monocytes Percent Auto 3.9 % (2.6-8.5); Neutrophils Absolute Auto 6.1 K/mm3 (1.3-6.7); Neutrophils Percent Auto 74.9 % (45.5-73.1); Platelet Count Result 389 k/mm3 (150-375); Red Blood Count 4.29 M/mm3 (4.2-5.4); Red Cell Distribution Width 13.4 % (11.5-14.5); White Blood Count 8.1 K/mm3 (4.5-10.0)
[2024-09-15 11:40] LABS: Anion Gap 12 mmol/L (4-12); Blood Urea Nitrogen 9 mg/dL (7-17); Calcium 9.1 mg/dL (8.4-10.2); Carbon Dioxide 21 mmol/L (22-30); Chloride 104 mmol/L (98-107); Estimated CRCL calculation 74 ml/min; Estimated Glomerular Filt Rate 59; Glucose 99 mg/dL (65-110); Potassium 4.5 mmol/L (3.4-5.0); Sodium 137 mmol/L (137-145)
[2024-09-15] MEDS: CALAMINE LOTION 120 ML BOTTLE 1 APPLIC TOPICAL (12:14)
== END 2024-09-15 12:19 | disposition home or self-care (01) ==
PROVIDERS: Emergency Provider Student in an Organized Health Care Education/Training Program; PCP Nurse Practitioner Family
DX: L50.0 Allergic urticaria (principal)
CPT/HCPCS: 36415; 80048; 85025; 96374; 96375; 99284; A9270; J1200; J2919

== ENCOUNTER 2024-12-06 10:33 | Outpatient (CLI) | payer BC, MEDICAID, SELFPAY ==
--- NOTE | ~2024-12-06 | MM_ITS ---
EXAMINATION: MM screening dawn BI w mariaelena HISTORY: Screening TECHNIQUE: Craniocaudal and mediolateral oblique 3-D tomosynthesis images were obtained and synthetic 2-D images were generated. CAD analysis was submitted and interpreted. COMPARISON: Comparison to multiple prior studies sequentially, with oldest reviewed study dated 12/2017. BREAST PARENCHYMAL COMPOSITION: Not dense: There are scattered areas of fibroglandular density. FINDINGS: There is no evidence of suspicious mass, calcification, or architectural distortion to sugg est malignancy in either breast. There has been no suspicious interval change. IMPRESSION: 1. No mammographic evidence of malignancy. 2. Recommend routine screening mammography in one year. BI-RADS Category 1: Negative Reviewed, dictated and finalized at location A.
--- OUTSIDE RECORDS SUMMARY | 2024-12-06 11:23 | XMS_ITS | Encounter Summary ---
Author Organization [facility] Address [facility] [place] [address] Care Team Providers Care Wig Comber Name Role Phone Carla Holt Primary Care Provider [phone] Encounter Details Date Type Department Care Team (Late st Contact Info) Description 01/10/2024 MyChart Message Enc [facility] Family & Internal Medicine - [place] [address] [place] [address] Carla Holt FNP [address] [place] [address] Ozempic Social History Tobacco Use [...] as of this encounter Plan of Treatment Not on file documented as of this encounter Visit Diagnoses Not on filedocumented in this encounter Additional Health Concerns Assessment Noted Time PHQ-9 Depression Total Score: 6 01/05/20 24 9:29 AM CDT documented as of this encounter Care Teams Wig Comber Relationship Specialty Start Date End Date Carla Holt FNP [address] [place] [address] PCP - General Nurse Practitioner Family 01/05/24 documented as of this encounter
--- OUTSIDE RECORDS SUMMARY | 2024-12-06 11:23 | XMS_ITS | Encounter Summary ---
Author Organization [facility] Address [facility] [place] [address] Care Team Providers Care Tree Deadener Name Role Phone Carla Holt Primary Care Provider [phone] Encounter Details Date Type Department Care Team (Late st Contact Info) Description 01/18/2024 MyChart Message Enc [facility] Family & Internal Medicine - [place] [address] [place] [address] Carla Holt FNP [address] [place] [address] Phen phen Social History Tobacco [...] documented as of this encounter Care Teams Tree Deadener Relationship Specialty Start Date End Date Carla Holt FNP [address] [place] [address] PCP - General Nurse Practitioner Family 01/05/24 documented as of this encounter
--- OUTSIDE RECORDS SUMMARY | 2024-12-06 11:23 | XMS_ITS | Clinical Summary ---
Author Organization [facility] Address Formerly [facility] [place] [address] Care Team Providers Care Gis Instructor Name Role Phone Jeanette Holt INDU Primary Care Provider [phone] Allergies Active Allergy Reactions Criticality Noted Date Comments Sulfa Antibiotics Rash Low 09/20/2024 Medications tirzepatide (ZEPBOUND) 12.5 MG/0.5ML injectionIndica tions:Weight Loss Inject 12.5 mg into the skin once a week. Indications : Weight Loss 6 mL 5 Active tirzepatide (ZEPBOUND) 10 MG/0.5ML injectionIndica tions:Weight Loss Inject 10 mg into the skin once a week. Indications : Weight Loss 2 mL 1 5 11/23/19 25 Discontinu ed(Dose adjustment ) Active Problems Problem Noted Date Diagnosed Date Class 1 obesity due to exces s calories without serious comorbidity with body mass index (BMI) of 34.0 to 34.9 in adult 02/13/2024 Vitamin D deficiency, unspecified 02/13/2024 Family history of diabetes mellitus 02/13/2024 Elevated low density lipoprotein (LDL) cholester ol level 02/13/2024 Encounters Date Type Department Care Team Description 11/23/2024 Telephone [facility] Family & Internal Medicine - [address] [phone] Jeanette Holt FNP Prior Authorization (Zepbound 12.5mg ) 11/22/2024 MyChart Message Enc [facility] Internal [address] [phone] Jeanette Holt FNP Zepbound 12.5 11/01/2024 Telephone [facility] Internal [address] [phone] Jeanette Holt FNP Prior Authorization (Zepbound 10mg ) 10/03/2024 MyChart Message Enc [address] [phone] Jeanette Holt FNP My zepbiund 10/03/[address] [phone] Jeanette Holt FNP Prior Authorization (Zepbound 10mg ) 09/24/2024 2:00 PM TIRE MOLDER Office Visit [address] [phone] Jeanette Holt FNP Physical Trainer Exam 09/24/2024 12:20 PM TIRE MOLDER - 09/24/2024 11:59 PM TIRE MOLDER Hospital Encounter [facility] [address] [place] [address] Jeanette Holt FNP Discharge Disposition: Home or Self Care (Routine Discharge) 09/24/2024 Travel 09/15/2024 Scan [facility] Scanned, [facility] (SCAN) 09/08/2024 Scan [facility] Scanned, [facility] (SCAN) from Last 3 Months Immunizations Name Administration [...] Date Recorded Patient Health Questionnaire-2 Score 0 09/24/2024 Comments No Sex and Gender Information Value Date Recorded Sex Assigned at Female 01/02/2024 9:13 AM CDT Legal Sex Female 6:03 PM CDT Gender Identity Female 01/02/2024 9:13 AM CDT Sexual Orientation Straight 01/02/2024 9: 13 AM CDT Last Filed Vital Signs Vital Sign Reading Time Taken Comments Blood Pressure 112/80 09/24/2024 2:31 PM TIRE MOLDER Pulse 99 09/24/2024 2:31 PM TIRE MOLDER Temperature 37 C (98.6 F) 09/24/2024 2:31 PM TIRE MOLDER Respiratory Rate 14 09/24/2024 2:31 PM TIRE MOLDER Oxygen Saturation 98% 09/24/2024 2:31 PM TIRE MOLDER Inhaled Oxygen Concentration - - Weight 98.8 kg (217 lb 12.8 oz) 09/24/2024 2:31 PM TIRE MOLDER Height 170.2 cm (5' 7 ) 09/24/2024 2:31 PM TIRE MOLDER Body Mass Index 34.11 09/24/2024 2:31 PM TIRE MOLDER Plan of Treatment Health Maintenance Due Date Last Done Comments Hepatitis C 1994 Hepatitis B Vaccines (2 of 3 - 19+ 3-dose series) 08/26/2003 07/29/2003 Mammogram Screening 11/26/2023 11/25/2021 COVID-19 Vaccine (2023-2 5 season) 2025 Postponed from 05/06 (Patient Refused) Influenza Adult (#1) 2025 06/05/2020 Postpon ed from 06/05/2024 (Patient Refused) Annual Physical 09/24/2025 09/24/2024 Colorectal Cancer Screening FIT-DNA (3 Years) 01/10/2027 01/11/2024, 01/11/2024 Cervical Cancer Screening Pa p Smear (Age 30 to 64) Every 3 Years 09/24/2027 09/24/2024 Cervical Cancer Screening Pa p with HPV Testing (Age 30 to 64) Every 5 Years 09/24/2029 09/24/2024 Cervical Cancer Screening with HPV 09/24/2029 DTaP, Tdap and Td Vaccines ( 2 - Td or Tdap) 01/09/2030 01/10/2020, 07/29/2003 PHQ-2 (Physician [place]) Completed 09/24/2024 Meningococcal B Vaccine Aged Out No l onger eligible based on patient's age to complete this topic Meningococcal Vaccine Aged Out No gucci nancy [...] Procedure Name Priority Date/Time Associated Diagnosis Comments COLLECT.CAPILLARY (FNGR,HEEL,EAR) Routine 09/24/2024 2:29 PM TIRE MOLDER Family history of diabetes mellitus HUMAN PAPILLOMAVIRUS, HIGH-RISK TYPES Routine 09/24/2024 12:00 PM TIRE MOLDER CYTOPATH CERV/VAG THIN LAYER Routine 09/24/2024 12:00 AM TIRE MOLDER Well woman exam with routine gynecological exam Papanicolaou smear for cervical cancer screening HEMOGLOBIN, GLYCOSYLATED Routine 09/24/2024 Class 1 obesity due to excess calories without serious comorbidity with body mass index (BMI) of 34.0 to 34.9 in adult Family history of diabetes mellitus OUTSIDE LAB (SCAN ORDER) 09/15/2024 OUTSIDE LAB (SCAN ORDER) 09/08/2024 OUTSIDE LAB (SCAN ORDER) 09/08/2024 COLOGUARD (EXACT SCIENCE) Routine 01/11/2024 7:00 AM CDT Screening for colon cancer MAMMOGRAM GENERIC (SCAN ORDER) 11/25/2021 from Last 3 Months or Most Recently Relevant to Health Maintenance Results * HUMAN PAPILLOMAVIRUS, HIGH-RISK TYPES (09/24/2024 12:00 PM TIRE MOLDER) SPEC DESCRIPTION CERVIX 09/25/19 2:48 PM TIRE MOLDER [facility] HPV DNA HIGH RISK NEGATIVE NEGATIVE 09/26/2024 4:04 PM TIRE MOLDER [facility] Comment:SEE CYTOLOGY REPORT 09/24/2024 12:0 0 PM TIRE MOLDER Jeanette GRIGGS PATHOLOGY/CYTOLOGY ORDERABLES Final Result [facility] [address] [place] [address], * HEMOGLOBIN, GLYCOSYLATED (09/24/2024) HGB A1C 5.4 % [facility] 09/24/2024 Jeanette GRIGGS LABORATORY Final Result Performing Organization Address [facility] Co de Phone Number [facility] [address] [place] [address], [place] * Cytopath Cerv/Vag Thin Layer (09/24/2024 12:00 AM TIRE MOLDER) THIN PREP PAP [facility] [address] [place] [address] Department of Pathology Pathology Report CERVICAL/VAGINAL PAP SMEAR REPORT Name: CINDY COLORADO Age: 12 1975 (Age: 49) Location: [facility] Sex: F Collected Date: 09/24/2024 [facility] #: [id number] Date Received: 09/25/2024 Date Reported: 09/28/2024 Provider: JEANETTE GRIGGS-C INTERPRETATION CERVICAL/ENDOCERVIC AL: SATISFACTORY FOR EVALUATION. ENDOCERVICAL/TRANSF ORMATION ZONE COMPONENT PRESENT. ENDOMETRIAL CELLS PRESENT. REACTIVE SQUAMOUS CELLS. NEGATIVE FOR SQUAMOUS INTRAEPITHELIAL LESION. NEGATIVE FOR HIGH RISK HPV. The FDA approved Aptima HPV assay is an in vitro nucleic acid amplification test for the qualitative detection of E6/E7 viral messenger RNA (mRNA) from 14 high-risk types of human papillomavirus (HPV) in cervical specimens. The high-risk HPV types detected by the assay include: 16,18,31,33,35,39,4 5,51,52,56,58,59,66 , and 68. Slide screening performed by a certified respiratory therapist at [facility], [address] [place] [address], Case signed out by a certified pathologist at [facility], [address] [place] [address] Electronically Signed Out NATHAN Lopez MD (ASCP) CLINICAL HISTORY Z01.419 WELL WOMAN EXAM WITH ROUTINE GYNECOLOGICAL EXAM Z12.4 PAPANICOLAOU SMEAR FOR CERVICAL CANCER SCREENING SCREENING PAP ThinPrep Pap Test with HR HPV testing in patient > 30 years requested. Date of Last Menstrual Period: 09/20/2024 Menstrual Status: Regular SPECIMEN SUBMITTED CERVICAL/ENDOCERVIC AL Specimen Received:1 Thin Prep Vial, Image Assisted Pap (SMD) Please note: The Pap smear is not a diagnostic test. It is a screening test. Negative results on combined screening (Pap test and HPV-DNA) have a high negative predictive value (99.1-100 percent) for cervical cancer. The pap test is not effective in detecting cervical adenocarcinoma. [facility] 09/24/2024 09/25/2024 2:0 0 PM TIRE MOLDER Comment:CERVICAL/ENDOCERVICA L us Jeanette GRIGGS PATHOLOGY/CYTOLOGY ORDERABLES Final Result [facility] [address] [place] [address], [place] [phone] * OUTSIDE LAB (SCAN ORDER) (09/15/2024) Only the most recent of3 resultswithin the time period is included. 09/15/2024 us [facility] Scanned SCANNING Final Resu lt * COLOGUARD (EXACT SCIENCE) (01/11/2024 7:00 AM CDT) COLOGUARD RESULT Negative Negative [facility] [email or web address] (CLIA #:[id number]) Comment: NEGATIVE TEST RESULT. A negative Cologuard result indicates a low likelihood that a colorectal cancer (CRC) or advanced adenoma (adenomatous polyps with more advanced pre-malignant features) is present. The chance that a person with a negative Cologuard test has a colorectal cancer is less than 1 in 1500 (negative predictive value >99.9%) or has an advanced adenoma is less than 5.3% (negative predictive value 94.7%). These data are based on a prospective cross-sectional study of 10,000 individuals at average risk for colorectal cancer who were screened with both Cologuard and colonoscopy. (Nelson Howell et al, N Engl J Med 2014;370(14):7799-7925) The normal value (reference range) for this assay is negative. COLOGUARD RE-SCREENING RECOMMENDATION: Periodic colorectal cancer screening is an important part of preventive healthcare for asymptomatic individuals at average risk for colorectal cancer. Following a negative Cologuard result, the [place] Cancer Society and U.S. Multi-Society Task Force screening guidelines recommend a Cologuard re-screening interval of 3 years. References: [place] [employer] Guideline for Colorectal Cancer Screening: https://www.cancer.org/cancer/wfcbp-wukoga-mgalzz/dcnbwgrgj-exzzulvzy-dozelcy/ac s-rec ommendations.html.; Keyur BARTH, Dami AYALA, Naomi MaloneK, Colorectal Cancer Screening: Recommendations for Physicians and Patients from the U.S. Multi-Society Task Force on Colorectal Cancer Screening , Am J Gastroenterology 2017; 112:3485-9598. TEST DESCRIPTION: Composite algorithmic analysis of stool DNA-biomarkers with hemoglobin immunoassay. Quantitative values of individual biomarkers are not [...] with both Cologuard and colonoscopy. (Nelson Milan. et al, N Engl J Med 2014;370(14):4352-3947.) Cologuard may produce a false negative or false positive result (no colorectal cancer or precancerous polyp present at colonoscopy follow up). A negative Cologuard test result does not guarantee the absence of CRC or advanced adenoma (pre-cancer). The current Cologuard screening interval is every 3 years. ([place] [employer] Society and U.S. Multi-Society Task Force). Cologuard performance data in a 10,000 patient pivotal study using colonoscopy as the reference method can be accessed at the following location: www.[employer]/results. Additional description of the Cologuard test process, warnings and precautions can be found at www.cologuard.com. STOOL STOOL SPECIMEN / Unknown 01/11/2024 7:00 AM CDT 01/12/2024 12:10 PM CDT us Jeanette Holt HAT FINISHER BODY FLUIDS AND STOOLS ORDERAB LES Final Result [facility] ([facility]) [address] [place] [place] [address], [employer] (CLIA #:[id number]) [address] [place] [place] [address] * MAMMOGRAM GENERIC (SCAN ORDER) (11/25/2021) Anatomical Region Laterality Modality Other 11/25/2021 us [facility] Scanned SCANNING Final Resu lt from Last 3 Months or Most Recently Relevant to Health Maintenance Insurance [facility] MEDICAID Care Teams Gis Instructor Relationship Specialty Start Date End Date Jeanette Holt FNP [address] [place] [id number] PCP - General Nurse Practitioner Family 01/05/24
--- OUTSIDE RECORDS SUMMARY | 2024-12-06 11:23 | XMS_ITS | Encounter Summary ---
Author Organization [facility] Address [facility] [place] [address] Care Team Providers Care Armored Car Guard Name Role Phone Carla Holt Primary Care Provider Encounter Details Date Type Department Care Team (Late st Contact Info) Description 01/06/2024 MyChart Message Enc [facility] Family & Internal Medicine - [place] [address] [place] [address] Carla Holt FNP [address] [place] [address] Ozempia pill Social History Tobacco [...] documented as of this encounter Care Teams Armored Car Guard Relationship Specialty Start Date End Date Carla Holt FNP [address] [place] [phone] PCP - General Nurse Practitioner Family 01/05/24 documented as of this encounter
== END 2024-12-06 10:34 | disposition home or self-care (01) ==
PROVIDERS: PCP Nurse Practitioner Family; Visit Provider Nurse Practitioner Family
DX: Z12.31 Encounter for screening mammogram for malignant neoplasm of breast (principal)
CPT/HCPCS: 77063; 77067